=== PATIENT | female | born 1960 | race Caucasian/White ===

== ENCOUNTER 2016-09-05 21:16 | Inpatient (IN) | payer OTHER ==
[~2016-09-05] VITALS: Ht 160 cm; Wt 78.2 kg
[2016-09-05 21:18] VITALS: BP 162/91; PULSE 88; RESP 16; TEMP 98.4; O2SAT 96
[2016-09-05] MEDS ORDERED: MEDR4PAK PO (21:41)
[2016-09-05] MEDS ORDERED: DICL75TA PO (21:41)
[2016-09-05] MEDS ORDERED: LEVO50TA4 PO (21:41)
[2016-09-05] MEDS ORDERED: FOSA70TA PO (21:41)
--- NOTE | 2016-09-05 21:48 | PD ---
HPI Chief Complaint: Hip Injury Time Seen by Provider: 21:48 Travel History International Travel<30 days: No Contact w/Intl Traveler<30days: No Traveled to known affect area: No History of Present Illness HPI 56-year-old female with a history of hypothyroidism status post thyroidectomy and osteoporosis presents to the emergency department for evaluation of right hip and leg pain. The patient states that 4 days ago she began to have some pain in her right hip and leg after work. States that the pain persisted and on Tuesday she went to an urgent care facility and x-rays of her hip which showed arthritis and was prescribed a Medrol Dosepak and diclofenac. States that she has been taking these medications as prescribed for the past 2 days and her symptoms had improved until tonight. States that tonight she went to sit down on her couch and felt a crack in her right hip and has had severe pain from her right hip to her right thigh since this occurred. States that she has been unable to bear weight on the right leg since this occurred. States that he is unable to describe the pain. Pain is severe. Aggravated with movement. No alleviating factors. No other complaints. PFSH Past Medical History Arthritis: Yes (osteo) Diminished Hearing: No Thyroid Disease: Yes (hypothyriod) Tetanus Vaccination: < 5 Years Influenza Vaccination: Yes : 2 Para: 2 Past Surgical History Endocrine Surgery: Yes (thriodectomy) Eye Surgery: Yes Hysterectomy: Yes Social History Alcohol Use: No Tobacco Use: No Substance Use: No Allergies-Medications (Allergen,Severity, Reaction): Coded Allergies: No Known Allergies (Unverified , 09/05/16) Reported Meds & Prescriptions Reported Meds & Active Scripts Active Reported Levothyroxine (Levothyroxine Sodium) 50 Mcg Tab 50 Mcg PO DAILY Fosamax (Alendronate Sodium) 70 Mg Tab 70 Mg PO Q7D Medrol Dosepak (Methylprednisolone) 4 Mg Dspk 4 Mg PO DIRECTED Per Pharmacist direction Diclofenac Sodium DR (Diclofenac Sodium) 75 Mg Tabdr 75 Mg PO BID Review of Systems Except as stated in HPI: all other systems reviewed are Neg Physical Exam Narrative GENERAL: Well-nourished and well-developed pleasant female patient lying on her left side in no acute distress. SKIN: Warm and dry. HEAD: Normocephalic and atraumatic. EYES: No injection, drainage, or hyphema noted. PERRLA. EOMI. ENT: No nasal drainage noted. Oropharynx is clear. NECK: Supple and the trachea is midline. CARDIOVASCULAR: Regular rate and rhythm. RESPIRATORY: Breath sounds are equal bilaterally with no accessory muscle use, wheezing, rhonchi, or crackles. GASTROINTESTINAL: Abdomen is soft, non-tender, and nondistended. MUSCULOSKELETAL: Mild tenderness to palpation of right hip and buttock. Patient resisting any range of motion of the right hip or right knee due to significant pain. No obvious deformities, swelling, cyanosis, or ecchymosis is present throughout the upper and lower extremities. DP pulses are 2+ bilaterally. Capillary refill is within normal limits. BACK: Nontender without any obvious deformities, bony point tenderness, or crepitus noted throughout the thoracic and lumbar vertebrae. NEUROLOGICAL: Awake, alert, and oriented. Normal speech and gait. Cranial nerves are grossly intact. Data Data Last Documented VS Vital Signs Date Time Temp Pulse Resp B/P Pulse Ox O2 Delivery O2 Flow Rate FiO2 09/05/16 21:31 Room Air 09/05/16 21:18 98.4 88 16 162/91 96 Orders Femur (Ap & Lat/2vws) (09/05/16 21:47) Pelvis, Ap Only (Routine) (09/05/16 21:47) Iv Access Insert/Monitor (09/05/16 21:47) Morphine Inj (Morphine Inj) (09/05/16 22:00) Ondansetron Inj (Zofran Inj) (09/05/16 22:00) Sodium Chloride 0.9% Flush (Ns Flush) (09/05/16 22:00) Complete Blood Count With Diff (09/05/16 22:40) Comprehensive Metabolic Panel (09/05/16 22:40) Prothrombin Time / Inr (Pt) (09/05/16 22:40) Act Partial Throm Time (Ptt) (09/05/16 22:40) MDM Medical Decision Making Medical Screen Exam Complete: Yes Emergency Medical Condition: Yes Differential Diagnosis Sciatica versus osteoarthritis versus fracture versus tendinitis Narrative Course 56-year-old female presents to the emergency department for evaluation of right hip and thigh pain after sitting down on the couch. Patient is afebrile, vital signs are stable. She is refusing any sort of range of motion of the right hip or knee due to severe pain. The right lower extremity is neurovascularly intact. We'll do an x-ray of the right femur and pelvis to rule out any fracture. I suspect this is sciatica or muscle strain. Patient is administered morphine 4 mg IV and Zofran 4 mg IV. The patient has a right femoral neck fracture noted on x-ray. She'll be admitted to medicine service with consultation orthopedic surgery. Physician Communication Physician Communication I spoke with Dr. Corona, orthopedic surgeon on-call, who requests patient be admitted to medicine service with consultation to his partner Dr. Carballo. Diagnosis Primary Impression: Fracture of femoral neck, right, closed Qualified Code: S72.001A - Closed fracture of neck of right femur, initial encounter Admitting Information Admitting Physician Requests: Admit Celina Connelly Sep 05, 2016 21:48
[2016-09-05] MEDS ORDERED: ONDANSETRON HCL 4 MG/2 ML VIAL IVP ONE (22:00)
[2016-09-05] MEDS ORDERED: SODIUM CHLORIDE 0.9% FLUSH 5 ML FLUSH IVF PRN (22:00)
[2016-09-05] MEDS ORDERED: MORPHINE SULFATE 4 MG/ML INJ IV PUSH ONE (22:00)
[2016-09-05 22:30] VITALS: BP 145/80; PULSE 70; RESP 18; O2SAT 95
--- NOTE | 2016-09-05 22:31 | RADRPT ---
EXAM DATE/TIME: 09/05/2016 22:07 [facility] COMPARISON: No previous studies available for comparison. INDICATIONS : Pain radiating through right leg and lower back without trauma. MEDICAL HISTORY : Osteoporosis. SURGICAL HISTORY : None. ENCOUNTER: Initial ACUITY: 4 - 6 days PAIN SCORE: 10/10 LOCATION: Right femur. FINDINGS: Bone density is decreased. There is a mildly displaced fracture of the subcapital femoral neck right femur. Left hip intact. Mild joint space narrowing bilaterally. CONCLUSION: Right femoral neck fracture. Pedro Cuellar MD on September 05, 2016 at 22:29 Board Certified Radiologist. This report was verified electronically.
--- NOTE | 2016-09-05 22:45 | RADRPT ---
EXAM DATE/TIME: 09/05/2016 22:08 [facility] COMPARISON: PELVIS AP ONLY, September 05, 2016, 22:07. INDICATIONS : Pain radiating through leg and lower back without trauma. MEDICAL HISTORY : Osteoporosis. SURGICAL HISTORY : None. ENCOUNTER: Initial ACUITY: 4 - 6 days PAIN SCORE: 10/10 LOCATION: Right femur. FINDINGS: There is a mildly displaced fracture through the right subcapital femoral neck. There is osteoarthrit is at the knee of moderate severity. CONCLUSION: Right femoral neck fracture. Pedro Cuellar MD on September 05, 2016 at 22:43 Board Certified Radiologist. This report was verified electronically.
[2016-09-05 22:59] LABS: AUTOMATED NEUTROPHIL # 10.2 TH/MM3 (1.8-7.7); BASOPHIL # 0.1 TH/MM3 (0-0.2); BASOPHIL % 0.5 % (0.0-2.0); EOSINOPHIL % 0.1 % (0.0-4.0); HEMO FLAGS DIFF FINAL; LYMPH % 11.1 % (9.0-44.0); LYMPHOCYTE # 1.4 TH/MM3 (1.0-4.8); MEAN CELL VOLUME 85.9 FL (80.0-100.0); MEAN CORPUSCULAR HEMOGLOBIN 28.5 PG (27.0-34.0); MEAN CORPUSCULAR HGB CONC 33.2 % (32.0-36.0); MONO % 5.5 % (0.0-8.0); NEUT % 82.8 % (16.0-70.0); PLATELET COUNT 308 TH/MM3 (150-450); RED BLOOD COUNT 4.89 MIL/MM3 (4.00-5.30); RED CELL DISTRIBUTION WIDTH 13.9 % (11.6-17.2); WHITE BLOOD COUNT 12.3 TH/MM3 (4.0-11.0)
--- NOTE | 2016-09-05 23:28 | HHI.HP ---
HPI Service [facility] Primary Care Physician Jesus Duran MD Admission Diagnosis Right Femoral Neck Fracture Diagnoses: (1) Hip fracture, right Diagnosis: Principal (2) Osteoporosis Diagnosis: Principal (3) Leukocytosis Diagnosis: Principal (4) Renal insufficiency Diagnosis: Principal (5) HTN (hypertension) Diagnosis: Principal Travel History International Travel<30 Days: No Contact w/Intl Traveler <30 Da: No Traveled to Known Affected Are: No History of Present Illness This is a 56-year-old female with a PMH of Osteoporosis and Hypothyroidism who was brought to the ER by EMS secondary to complaints of right hip pain. Per pt pain started approx 4 days ago, no trauma/injury reported. Seen at [facility]gent [facility] on 09/03/16, s/p Hip X-ray w/ arthritis per her report and prescribed Medrol Dosepak and Diclofenac. Minimal improvement in pain complaints. Tonight states she sat down on her couch and heard a "crack", had immediate severe pain in right hip. On arrival, BP 162/91, HR 88, O2 sat 96% on RA, Afebrile. WBC 12.3. Creatinine 1.24, no bruits labs for comparison. Pelvis/ Femur X-ray with right femoral neck fracture. Dr. Corona consulted by ER physician, recommended consult for Dr. Carmichael for am w/ plan for surgical intervention. Review of Systems Except as stated in HPI: all other systems reviewed are Neg ROS: 14 point review of systems otherwise negative. Past Family Social History Past Medical History PMH: Osteoporosis and Hypothyroidism Past Surgical History PAST SURGICAL HISTORY: Thyroidectomy, Hysterectomy Allergies: Coded Allergies: No Known Allergies (Unverified , 09/05/16) Family History PAST FAMILY HISTORY: Reviewed. No h/o DM or CAD Social History PAST SOCIAL HISTORY: Negative for alcohol, tobacco or drugs. Physical Exam Vital Signs Vital Signs Date Time Temp Pulse Resp B/P Pulse Ox O2 Delivery O2 Flow Rate FiO2 09/05/16 21:31 Room Air 09/05/16 21:18 98.4 88 16 162/91 96 Physical Exam PE: GENERAL: Pleasant middle-aged white female in no acute distress. HEENT: PERRLA, EOMI. No scleral icterus or conjunctival pallor. No lid lag or facial droop. CARDIOVASCULAR: Regular rate and rhythm. No obvious murmurs to auscultation. No chest tenderness to palpation. RESPIRATORY: No obvious rhonchi or wheezing. Clear to auscultation. Breath sounds equal bilaterally. GASTROINTESTINAL: Abdomen soft, non-tender, nondistended. BS normal. MUSCULOSKELETAL: Decreased ROM of RLE due to injury. Pulses intact. NEUROLOGICAL: Awake, alert and oriented x4. No focal neurologic deficits. Moving both upper and lower extremities spontaneously. Laboratory Laboratory Tests Test 09/05/16 22:45 White Blood Count 12.3 Red Blood Count 4.89 Hemoglobin 13.9 Hematocrit 42.0 Mean Corpuscular Volume 85.9 Mean Corpuscular Hemoglobin 28.5 Mean Corpuscular Hemoglobin 33.2 Concent Red Cell Distribution Width 13.9 Platelet Count 308 Mean Platelet Volume 8.9 Neutrophils (%) (Auto) 82.8 Lymphocytes (%) (Auto) 11.1 Monocytes (%) (Auto) 5.5 Eosinophils (%) (Auto) 0.1 Basophils (%) (Auto) 0.5 Neutrophils # (Auto) 10.2 Lymphocytes # (Auto) 1.4 Monocytes # (Auto) 0.7 Eosinophils # (Auto) 0.0 Basophils # (Auto) 0.1 CBC Comment DIFF FINAL Differential Comment Result Diagram: 09/05/16 6462 Assessment and Plan Problem List: (1) Hip fracture, right ICD Code: S72.001A Status: Acute (2) Osteoporosis ICD Code: M81.0 Status: Acute (3) Renal insufficiency ICD Code: N28.9 Status: Acute (4) Leukocytosis ICD Code: D72.829 Status: Acute (5) HTN (hypertension) ICD Code: I10 Status: Acute Assessment and Plan A/P: 1. Right Hip Fx: non-traumatic fracture, Pelvic/Femur X-ray w/ right femoral neck fracture. Dr. Corona consulted by ER physician, recommended consult for Dr. Carmichael in am for surgical intervention. NPO, IVF, analgesics/antiemetics. 2. Osteoporosis: on Flomax. c/o right hip pain, seen at Urgent Care 09/03/16, started on Medrol Dosepak and Diclofenac, states X-ray only positive for arthritis at that time. D/c steroids, hold Diclofenac. 3. Renal Insufficiency: Creatinine 1.24, no previous labs for comparison. IVF , check U/a, repeat labs in am. 4. Leukocytosis: WBC 12.3, mild shift, likely secondary to recent injury/ steroid use. No signs of infection. Repeat labs in am. 5. HTN: BP 160's on arrival, likely compounded by pain and recent steroid use. BP currently 140's, monitor BP, optimize pain control. 6. DVT Prophylaxis: Anticoagulation post-op per Ortho. 7. Social work for d/c planning as needed. 8. Case discussed w/ ER physician at length. Physician Certification 2 Midnight Certification Type: Admission for Inpatient Services Order for Inpatient Services The services are ordered in accordance with Medicare regulations or non- Medicare payer requirements, as applicable. In the case of services not specified as inpatient-only, they are appropriately provided as inpatient services in accordance with the 2-midnight benchmark. Estimated LOS (days): 2 days is the estimated time the patient will need to remain in the hospital, assuming treatment plan goals are met and no additional complications. Post-Hospital Plan: Not yet determined Ml San MD Sep 05, 2016 23:28
[2016-09-05] MEDS ORDERED: ONDANSETRON HCL 4 MG/2 ML VIAL IVP PRN (23:30)
[2016-09-05] MEDS ORDERED: ACETAMINOPHEN 325 MG TAB PO PRN (23:30)
[2016-09-05] MEDS ORDERED: BISACODYL 10 MG SUPP PR PRN (23:30)
[2016-09-05] MEDS ORDERED: ACETAMINOPHEN/HYDROcodone 325 MG/5 MG TAB PO PRN (23:30)
[2016-09-05 23:34] LABS: APTT (PATIENT) 23.4 SEC (24.3-30.1); PROTHROMBIN TIME - PATIENT 10.8 SEC (9.8-11.6)
[2016-09-05 23:48] LABS: ALKALINE PHOSPHATASE 40 U/L (45-117); ALT (GPT) 50 U/L (10-53); ANION GAP 11 MEQ/L (5-15); AST (GOT) 29 U/L (15-37); BICARBONATE 28.9 MEQ/L (21.0-32.0); BLOOD UREA NITROGEN 25 MG/DL (7-18); CHLORIDE 102 MEQ/L (98-107); GLOMERULAR FILTRATION RATE 44 ML/MIN (>89); SODIUM (NA) 142 MEQ/L (136-145); TOTAL BILIRUBIN ADULT 0.3 MG/DL (0.2-1.0)
[2016-09-05] MEDS: SODIUM CHLOR 0.9% 1000 ML INJ 1,000 ML IV SCH (23:55)
[2016-09-05 23:56] VITALS: BP 141/82; PULSE 73; RESP 18; O2SAT 94
[2016-09-06] MEDS: HYDROmorphone HCL PF 1 MG/ML VIAL IV PRN ×6 (01:03→21:33)
[2016-09-06] MEDS: SODIUM CHLORIDE 0.9% FLUSH 5 ML FLUSH FLUSH PRN ×3 (01:03→17:27)
[2016-09-06] MEDS ORDERED: METOPROLOL TARTRATE 25 MG TAB PO PRN (01:15)
[2016-09-06] MEDS ORDERED: INSULIN HUMAN REGULAR 1,000 UNITS/10 ML VIAL SQ PRN (01:15)
[2016-09-06] MEDS: SODIUM CHLORID 0.9% 500 ML IV SCH ×2 (01:15→17:55)
[2016-09-06] MEDS ORDERED: LACTATED RINGER'S 1000 ML IV SCH (01:15)
[2016-09-06 03:00] LABS: AUTOMATED NEUTROPHIL # 7.4 TH/MM3 (1.8-7.7); BASOPHIL # 0.1 TH/MM3 (0-0.2); BASOPHIL % 0.6 % (0.0-2.0); EOSINOPHIL % 0.2 % (0.0-4.0); HEMATOCRIT 37.8 % (35.0-46.0); HEMO FLAGS DIFF FINAL; LYMPH % 18.4 % (9.0-44.0); LYMPHOCYTE # 1.8 TH/MM3 (1.0-4.8); MEAN CELL VOLUME 86.1 FL (80.0-100.0); MEAN CORPUSCULAR HEMOGLOBIN 28.5 PG (27.0-34.0); MEAN CORPUSCULAR HGB CONC 33.1 % (32.0-36.0); MONO % 5.7 % (0.0-8.0); NEUT % 75.1 % (16.0-70.0); PLATELET COUNT 251 TH/MM3 (150-450); RED BLOOD COUNT 4.38 MIL/MM3 (4.00-5.30); RED CELL DISTRIBUTION WIDTH 14.2 % (11.6-17.2); WHITE BLOOD COUNT 9.8 TH/MM3 (4.0-11.0)
[2016-09-06 03:23] LABS: ALT (GPT) 41 U/L (10-53); ANION GAP 7 MEQ/L (5-15); AST (GOT) 19 U/L (15-37); BLOOD UREA NITROGEN 21 MG/DL (7-18); CHLORIDE 106 MEQ/L (98-107); GLOMERULAR FILTRATION RATE 72 ML/MIN (>89); POTASSIUM 4.4 MEQ/L (3.5-5.1); SODIUM (NA) 142 MEQ/L (136-145)
[2016-09-06 03:26] LABS: ALKALINE PHOSPHATASE 31 U/L (45-117); TOTAL BILIRUBIN ADULT 0.3 MG/DL (0.2-1.0)
[2016-09-06 04:00] VITALS: BP 148/90; PULSE 66; RESP 20; TEMP 98.4; O2SAT 96
--- NOTE | 2016-09-06 07:00 | PD.ORT.PN ---
Subjective Subjective Remarks s/p right hip pain hx of bisphonate use x 4 years for osteoporosis Objective Vitals Vital Signs Date Time Temp Pulse Resp B/P Pulse Ox O2 Delivery O2 Flow Rate FiO2 09/06/16 04:00 98.4 66 20 148/90 96 09/05/16 23:56 73 18 141/82 94 Room Air 09/05/16 22:30 70 18 145/80 95 Room Air 09/05/16 21:31 Room Air 09/05/16 21:18 98.4 88 16 162/91 96 Result Diagram: 09/06/16 0249 09/06/16 0249 Other Results Laboratory Tests Test 09/05/16 22:45 Prothrombin Time 10.8 SEC (9.8-11.6) Prothromb Time International 1.0 RATIO Ratio Imaging Last 24 hours Impressions Pelvis X-Ray 09/05/162146 Signed Impressions: Service Date/Time: Monday, September 05, 2016 22:07 - CONCLUSION: Right femoral neck fracture. Pedro Cuellar MD Femur X-Ray 09/05/162146 Signed Impressions: Service Date/Time: Monday, September 05, 2016 22:08 - CONCLUSION: Right femoral neck fracture. Pedro Cuellar MD Objective Remarks RLE: pain in hip with motion. nvi Assessment & Plan Assessment and Plan 1) Right Femoral Neck Fx -resume diet -npo after MN -hold lovenox -sign consents -plan for SANGEETHA tomorrow Noé Kebede Sep 06, 2016 07:00
--- NOTE | 2016-09-06 07:41 | MB ---
cc: CHRIS LEMONS CAMILLE MD DATE OF CONSULTATION: 09/06/[address] Ml San HISTORY OF PRESENT ILLNESS Mrs. Ricks is a 56-year-old female who has a history of osteoporosis. She has been on bisphosphonate medications for many many years. She states that she began having hip pain approximately three days ago. She went to the urgent care center. X-rays were taken which were negative for fracture. She was placed on anti-inflammatories as well as a Medrol Dosepak. She had minimal pain improvement. Last night she was sitting on the couch when she heard a crack and pop in her hip. She had immediate right hip pain. She was unable to stand or ambulate. She denies any actual fall. She presented to the emergency room where x-rays revealed a displaced right femoral neck fracture. She is currently awake and alert on the orthopedic floor. Pain is worse with movement and is improved with rest. PAST MEDICAL HISTORY ILLNESSES 1. Osteoporosis. 2. Hypothyroidism. SURGERIES 1. Hysterectomy. 2. Thyroidectomy. ALLERGIES No known drug allergies. MEDICATIONS Please see EMR for a complete list of medications. She has been on bisphosphonate medications for many years and she is on Synthroid. FAMILY HISTORY Noncontributory. She denies any familial medical problems other than osteoporosis in her mother. SOCIAL HISTORY The patient denies alcohol, tobacco or drug use. She still works four days a week. REVIEW OF SYSTEMS The patient denies headache, visual changes, neck pain, chest pain, shortness of breath, abdominal pain, nausea, vomiting or recent weight loss, numbness or tingling of extremities. She complains of right hip pain. Pain is worse with movement. PHYSICAL EXAMINATION GENERAL: The patient is a well-developed, well-nourished 56-year-old female in no acute distress. She is awake and alert. She is alert and oriented x3. VITAL SIGNS: Temperature 98.4, pulse 66, respirations 20, blood pressure 148/90. O2 sat is 96% on room air. HEAD: The patient is normocephalic. Pupils are equal. NECK: Soft, nontender. Trachea is midline. ABDOMEN: Soft, nontender, nondistended. EXTREMITIES: Examination of bilateral upper extremities reveals no pain with shoulder, elbow or wrist motion bilaterally. She has intact sensation in all fingers. She has good capillary refill in all fingers. Skin is intact. Radial pulses are palpable. Sensation is intact in all fingers. Examination of the left leg reveals no pain with hip, knee or ankle motion. Skin is intact. Dorsalis pedis pulse is palpable. Sensation is intact. Examination of right leg reveals pain with any hip motion. She has no tenderness around her knee, tibia or ankle. Skin is intact. Dorsalis pedis pulse is palpable. Sensation is intact in the right foot. X-RAYS X-rays of right hip were reviewed. X-rays reveal a displaced right femoral neck fracture. IMPRESSION 1. Displaced right femoral neck fracture. 2. Severe osteoporosis. PLAN The treatment options were discussed with the patient. I discussed with her hemiarthroplasty versus total hip arthroplasty. The patient is relatively young and relatively active. She would likely be better long-term with a total hip replacement because of her activity and work. She works on her feet, eight-hour shifts, at least four days a week. She works as a SOURCING SPECIALIST. The risks of surgery include bleeding, infection, injuries to arteries, nerves and blood vessels, leg length discrepancy, hip dislocation, as well as medical complications including blood clot, stroke, heart attack and . All questions were answered. I will plan on surgery tomorrow. A mid-level provider in my office (nurse practitioner or physician therapy assistant) may see this patient on follow-up visits and continue to implement the objectives of this plan including: Starting or adjusting medications, injections , cast application, orthotics, brace application, physical therapy, radiological studies (including x-ray, MRI, CT, ultrasound, bone scan), vascular studies, neurologic studies, specialist consultation, and proceeding with surgical management, as appropriate. MD MIMI Lagos/RUTH /7:21 AM 7:30 AM ZEN
[2016-09-06 07:51] LABS: BLOOD, URINE NEG (NEG); COMMENT (UR) CULT NOT INDICATED; CULTURE IF INDICATED CULT NOT INDICATED; GLUCOSE,URINE NEG (NEG); HYALINE CAST, URINE 1 /lpf (RARE); KETONE, URINE NEG (NEG); MUCUS URINE FEW /lpf (OCC); NITRITE,URINE NEG (NEG); PH, URINE 5.5 (5.0-8.5); SQUAMOUS EPITHELIAL CELL URINE <1 /hpf (0-5); URINE COLOR YELLOW (YELLW/STRAW)
[2016-09-06 08:00] VITALS: BP 146/95; PULSE 62; RESP 17; TEMP 96.8; O2SAT 95
--- NOTE | 2016-09-06 08:56 | HHI.PR ---
Subjective Remarks This is a 56-year-old female with Osteoporosis, Hypothyroidism, brought in to ER with secondary Right Hip pain no traumatic event reported, seen by Urgent Care 09/03/16, Pelvis/Femur X-ray with right femoral neck fracture. Seen in her bedroom in the presence of nurse Miss Castellon, awaiting for surgery probable for tomorrow, placed a [place] Catheter her present, Medication reconciliation performed. Objective Vital Signs Date Time Temp Pulse Resp B/P Pulse Ox O2 Delivery O2 Flow Rate FiO2 09/06/16 08:00 96.8 62 17 146/95 95 09/06/16 04:00 98.4 66 20 148/90 96 09/05/16 23:56 73 18 141/82 94 Room Air 09/05/16 22:30 70 18 145/80 95 Room Air 09/05/16 21:31 Room Air 09/05/16 21:18 98.4 88 16 162/91 96 Result Diagram: 09/06/169 09/06/169 Imaging Last Impressions Pelvis X-Ray 09/05/162146 Signed Impressions: Service Date/Time: Monday, September 05, 2016 22:07 - CONCLUSION: Right femoral neck fracture. Pedro Cuellar MD Femur X-Ray 09/05/162146 Signed Impressions: Service Date/Time: Monday, September 05, 2016 22:08 - CONCLUSION: Right femoral neck fracture. Pedro Cuellar MD Procedures No procedures performed to the patient. Other Results Laboratory Tests Test 09/05/16 09/06/16 09/06/16 22:45 02:49 07:00 Prothrombin Time 10.8 SEC Prothromb Time International 1.0 RATIO Ratio Activated Partial 23.4 SEC Thromboplast Time White Blood Count 9.8 TH/MM3 Red Blood Count 4.38 MIL/MM3 Hemoglobin 12.5 GM/DL Hematocrit 37.8 % Mean Corpuscular Volume 86.1 FL Mean Corpuscular Hemoglobin 28.5 PG Mean Corpuscular Hemoglobin 33.1 % Concent Red Cell Distribution Width 14.2 % Platelet Count 251 TH/MM3 Mean Platelet Volume 8.5 FL Neutrophils (%) (Auto) 75.1 % Lymphocytes (%) (Auto) 18.4 % Monocytes (%) (Auto) 5.7 % Eosinophils (%) (Auto) 0.2 % Basophils (%) (Auto) 0.6 % Neutrophils # (Auto) 7.4 TH/MM3 Lymphocytes # (Auto) 1.8 TH/MM3 Monocytes # (Auto) 0.6 TH/MM3 Eosinophils # (Auto) 0.0 TH/MM3 Basophils # (Auto) 0.1 TH/MM3 CBC Comment DIFF FINAL Differential Comment Sodium Level 142 MEQ/L Potassium Level 4.4 MEQ/L Chloride Level 106 MEQ/L Carbon Dioxide Level 29.0 MEQ/L Anion Gap 7 MEQ/L Blood Urea Nitrogen 21 MG/DL Creatinine 0.82 MG/DL Estimat Glomerular Filtration 72 ML/MIN Rate Random Glucose 113 MG/DL Calcium Level 8.2 MG/DL Total Bilirubin 0.3 MG/DL Aspartate Amino Transf 19 U/L (AST/SGOT) Alanine Aminotransferase 41 U/L (ALT/SGPT) Alkaline Phosphatase 31 U/L Total Protein 5.9 GM/DL Albumin 3.3 GM/DL Blood Type A NEGATIVE Antibody Screen NEGATIVE Blood Bank Comment Urine Color YELLOW Urine Turbidity CLEAR Urine pH 5.5 Urine Specific [place] 1.024 Urine Protein NEG mg/dL Urine Glucose (UA) NEG mg/dL Urine Ketones NEG mg/dL Urine Occult Blood NEG Urine Nitrite NEG Urine Bilirubin NEG Urine Urobilinogen LESS THAN 2.0 MG/DL Urine Leukocyte Esterase NEG Urine RBC 1 /hpf Urine WBC 2 /hpf Urine Squamous Epithelial <1 /hpf Cells Urine Hyaline Casts 1 /lpf Urine Mucus FEW /lpf Microscopic Urinalysis Comment CULT NOT INDICATED Objective Remarks GENERAL: Pleasant middle-aged white female in no acute distress. HEENT: PERRLA, EOMI. No scleral icterus or conjunctival pallor. No lid lag or facial droop. CARDIOVASCULAR: Regular rate and rhythm. No obvious murmurs to auscultation. No chest tenderness to palpation. RESPIRATORY: No obvious rhonchi or wheezing. Clear to auscultation. Breath sounds equal bilaterally. GASTROINTESTINAL: Abdomen soft, non-tender, nondistended. BS normal. MUSCULOSKELETAL: Decreased ROM of RLE due to injury. Pulses intact. NEUROLOGICAL: Awake, alert and oriented x4. No focal neurologic deficits. Moving both upper and lower extremities spontaneously. Medications and IVs Current Medications Medications (Trade) Dose Ordered Sig/Lilliana Route Start Time Stop Time Status Last Admin (NS 1000 ml Inj) 1,000 ml @ 100 mls/hr Q10H IV 3/17 23:25 09/05/16 23:55 (NS Flush) 2 ml UNSCH PRN FLUSH 09/05/16 23:30 09/06/16 01:03 (NS Flush) 2 ml BID FLUSH 09/06/16 09:00 (Zofran Inj) 4 mg Q6H PRN IVP 09/05/16 23:30 (Dulcolax Supp) 10 mg DAILY PRN LA 09/05/16 23:30 (Tylenol) 650 mg Q6H PRN PO 09/05/16 23:30 ([place] 5-325 Mg) 1 tab Q4H PRN PO 09/05/16 23:30 Hydromorphone HCl 1 mg 1 mg Q3H PRN IV 09/05/16 23:30 09/06/16 04:19 Lactated Ringer's 1,000 ml @ 30 mls/hr Q24H IV 09/06/16 01:15 (NS 500 ml Inj) 500 ml @ 30 mls/hr [id number] IV 09/06/16 01:15 09/07/16 01:14 (Pneumovax-23 Inj) 25 mcg ONCE ONCE IM 09/07/16 10:00 09/07/16 10:01 A/P Assessment and Plan (1) Hip fracture, right ICD Code: S72.001A Status: Acute (2) Osteoporosis ICD Code: M81.0 Status: Acute (3) Renal insufficiency ICD Code: N28.9 Status: Acute (4) Leukocytosis ICD Code: D72.829 Status: Acute (5) HTN (hypertension) ICD Code: I10 Status: Acute Assessment and Plan A/P: 1. Right Hip Fx: non-traumatic fracture, Pelvic/Femur X-ray w/ right femoral neck fracture. Orthopedic surgery Real Estate Lawyer for discharge plan, will need PT/OT at discharge 2. Osteoporosis: on Flomax. c/o right hip pain, seen at Urgent Care 09/03/16, started on Medrol Dosepak and Diclofenac. removed steroids by admitting physician. 3. Renal Insufficiency: Creatinine 1.24, no previous labs for comparison. IVF , UA no signs of infection 4. Leukocytosis: WBC 12.3, mild shift, likely secondary to recent injury/ steroid use. No signs of infection. 5. Hypertension controlled. DVT Prophylaxis: Anticoagulation post-op per Ortho. Social work for d/c planning as needed. Discussed with Patient, nurse Miss Castellon and her in the room. Discharge Planning as per Orthopedic police specialist. Baldev Bronson MD Sep 06, 2016 08:56
[2016-09-06] MEDS: SODIUM CHLORIDE 0.9% FLUSH 5 ML FLUSH FLUSH SCH ×2 (09:19→21:33)
[2016-09-06] MEDS: SODIUM CHLOR 0.9% 1000 ML INJ 1,000 ML IV SCH (09:21)
--- NOTE | 2016-09-06 10:04 | EKG ---
Date Performed: 09/06/2016 Time Performed: 02:10:04 PTAGE: 56 years EKG: Sinus rhythm with PAC(s) Borderline ECG NO PREVIOUS TRACING DOCTOR: Rod Rodríguez Interpretating Date/Time 09/06/2016 10:02:58
[2016-09-06] MEDS ORDERED: PRAV20TA2 PO (12:13)
[2016-09-06 12:42] VITALS: BP 134/81; PULSE 66; RESP 17; TEMP 96.2; O2SAT 94
--- NOTE | 2016-09-06 13:04 | RADRPT ---
EXAM DATE/TIME: 09/06/2016 11:44 [facility] COMPARISON: FEMUR RIGHT (AP & LAT/2VWS), September 05, 2016, 22:08. INDICATIONS : Right hip pain, no trauma, osteoporosis RADIATION DOSE: 60.14 CTDIvol (mGy) MEDICAL HISTORY : None SURGICAL HISTORY : Hysterectomy. ENCOUNTER: Initial ACUITY: 1 day PAIN SCALE: 10/10 LOCATION: Right hip TECHNIQUE: Volumetric scanning of the hip was performed. Using automated exposure control and adjustment of the mA and/or kV according to patient size, radiation dose was kept as low as reasonably achievable to o btain optimal diagnostic quality images. FINDINGS: BONES: And angulated fracture is identified through the base of the femoral neck. Femoral head remains well- seated within the acetabulum. Acetabulum and pelvis are intact. JOINTS: Angulated right femoral neck fracture. Advanced facet arthropathy is identified in the lower lumbar s pine at L5-S1. SOFT TISSUES: Muscles, tendons and neurovascular structures are grossly unremarkable. No evidence of mass, organize d fluid collection, or foreign body. CONCLUSION: Angulated basicervical fracture of the right femoral neck. Intact acetabulum and bony pelvis. Lumbosacral facet arthropathy. Edmund Daniel MD on September 06, 2016 at 12:57 Board Certified Radiologist. This report was verified electronically.
[2016-09-06 16:00] VITALS: BP 126/73; PULSE 69; RESP 18; TEMP 96.9; O2SAT 96
[2016-09-06] MEDS ORDERED: VANCOMYCIN INJ 1,250 MG in SODIUM CHLOR 0.9% 250 ML INJ 250 ML IV SCH (19:00)
[2016-09-06] MEDS ORDERED: ceFAZolin 2 GM PREMIX 50 ML IV SCH (19:00)
[2016-09-06 20:00] VITALS: BP 129/81; PULSE 60; RESP 16; TEMP 97.2; O2SAT 97
[2016-09-06] MEDS: PRAVASTATIN SOD 20 MG TAB PO SCH (21:33)
[2016-09-07] VITALS (9 sets, daily range): BP systolic 114–180; BP diastolic 67–94; PULSE 59–73; RESP 16–18; TEMP 95.8–98.4; O2SAT 95–99
[2016-09-07] MEDS: HYDROmorphone HCL PF 1 MG/ML VIAL IV PRN ×3 (00:36→09:03)
--- NOTE | 2016-09-07 06:13 | MB ---
cc: FROYLANJOANNA DATE OF CONSULTATION 09/06/2016 REASON FOR CONSULTATION Fracture right femoral neck. HISTORY This patient started to have some pain in her right groin on while at work and she got along by holding onto em etc. It got worse on Tuesday and she went to the Urgent [facility] Center at [facility] in [place] where they x-rayed her and told her that she probably had some osteoarthritis. They gave her steroids and NSAIDs which made her feel better. She still had difficulty getting around and used a walker that happened to be at home. Last night she had supper, then sat in a recliner and felt a pop in the right hip with severe pain prompting a visit to the emergency room where she was evaluated, x-rayed and admitted to the hospital. The patient was initially consulted on by Dr. Carmichael but later transferred to the [facility] because the patient is well-known to the [facility]. PAST SURGICAL HISTORY Hysterectomy 7 of 8 years ago but did not have any hormone replacement. She did have salpingo-oophorectomy in addition to the hysterectomy. No other surgery. PAST MEDICAL HISTORY She has been diagnosed has having osteoporosis and has been on Fosamax for the past 4-5 years. She has been taking calcium but not vitamin D. No other fractures recently. PHYSICAL EXAMINATION GENERAL: A white female who is of medium height and moderately overweight. EXTREMITIES: The right lower extremity is slightly externally rotated and shortened and pain with any movement of the right hip. She has satisfactory neurovascular status of the right foot. X-RAYS X-rays of the pelvis and right hip revealed fracture of the neck of the femur. There is some residual neck proximal to the lesser trochanter. CT scan reveals the same findings. The radiologist calls it as a basicervical fracture. IMPRESSION Technically this is a femoral neck fracture, even though it is somewhat more distal then the post-traumatic ones. This is a fracture related to osteoporosis and/or treatment with Fosamax. This is, however, not a classic Fosamax-related fracture which is more a proximal femoral shaft fracture and not a femoral neck fracture. I have ordered parathyroid hormone levels and vitamin D levels to see if they give us any clue as to whether there is some osteomalacia associated here. PLAN We will proceed with total hip replacement arthroplasty because that is a procedure that has the best prognosis, even though it has some more risks than internal fixation. I think the benefits outweigh the risks. The procedure itself and the potential risks, hazards and complications including but not limited to dislocation, fractures, DVT, embolism, re-surgery and revision have all been discussed with her. There is the possibility of limb length discrepancy because there is no reference we can use as far as measuring limb lengths at this time. Informed consent obtained. No guarantees made. Surgery is scheduled for tomorrow afternoon. MD ERNESTINA Rincon/AGNES /6:15 PM /6:05 AM
[2016-09-07] MEDS: LEVOTHYROXINE SODIUM 50 MCG TAB PO SCH (06:48)
[2016-09-07] MEDS: SODIUM CHLORIDE 0.9% FLUSH 5 ML FLUSH FLUSH SCH ×2 (09:11→21:27)
[2016-09-07] MEDS ORDERED: PNEUMOCOCCAL POLYVALENT INJ 25 MCG/0.5 ML SYR IM ONE (10:00)
[2016-09-07] MEDS ORDERED: FAMOTIDINE 20 MG/2 ML VIAL ONE (12:56)
[2016-09-07] MEDS ORDERED: ACETAMINOPHEN 1000 MG/100 ML VIAL IV ONE (12:56)
[2016-09-07] MEDS ORDERED: DEXAMETHASONE SOD PHOS 4 MG/ML VIAL ONE (12:56)
[2016-09-07] MEDS ORDERED: fentaNYL CITRATE 250 MCG/5 ML AMP ONE (12:56)
[2016-09-07] MEDS ORDERED: MIDAZOLAM HCL 2 MG/2 ML VIAL ONE (12:56)
[2016-09-07] MEDS ORDERED: GENTAMICIN SULFATE 80 MG/2 ML VIAL ONE (13:02)
--- NOTE | 2016-09-07 13:10 | HHI.PR ---
Subjective Remarks This is a 56-year-old female with Osteoporosis, Hypothyroidism, brought in to ER with secondary Right Hip pain no traumatic event reported, seen by Urgent Care 09/03/16, Pelvis/Femur X-ray with right femoral neck fracture. patient stable awaiting for procedure later today. has one value of high blood pressure do not need antihypertensives at this time. she complaint of pain and Anxiety previous to this high blood pressure. Objective Vital Signs Date Time Temp Pulse Resp B/P Pulse Ox O2 Delivery O2 Flow Rate FiO2 09/07/16 12:00 98.3 73 18 157/74 97 09/07/16 08:00 96.6 72 18 180/94 97 09/07/16 04:00 98.4 64 17 146/76 98 09/07/16 00:00 97.9 59 16 133/77 97 09/06/16 20:00 97.2 60 16 129/81 97 09/06/16 16:00 96.9 69 18 126/73 96 I/O 09/06/16 09/06/16 09/06/16 09/07/16 09/07/16 09/07/16 07:00 15:00 23:00 07:00 15:00 23:00 Intake Total 930 ml 0 ml Output Total 550 ml 325 ml Balance 380 ml -325 ml Intake Oral 930 ml 0 ml Output Urine Total 550 ml 325 ml # Voids 1 # Bowel Movements 0 Result Diagram: 09/06/16 0249 09/06/16 0249 Imaging Last Impressions Lower Extremity CT 09/06/16 0000 Signed Impressions: Service Date/Time: Tuesday, September 06, 2016 11:44 - CONCLUSION: Angulated basicervical fracture of the right femoral neck. Intact acetabulum and bony pelvis. Lumbosacral facet arthropathy. Edmund Daniel MD Pelvis X-Ray 09/05/[id number] Signed Impressions: Service Date/Time: Monday, September 05, 2016 22:07 - CONCLUSION: Right femoral neck fracture. Pedro Cuellar MD Femur X-Ray 09/05/162146 Signed Impressions: Service Date/Time: Monday, September 05, 2016 22:08 - CONCLUSION: Right femoral neck fracture. Pedro Cuellar MD Procedures No procedures performed to the patient. Other Results Laboratory Tests Test 3/509/06/16 09/06/16 09/07/16 22:45 02:49 07:00 08:26 Prothrombin Time 10.8 SEC Prothromb Time International 1.0 RATIO Ratio Activated Partial 23.4 SEC Thromboplast Time White Blood Count 9.8 TH/MM3 Red Blood Count 4.38 MIL/MM3 Hemoglobin 12.5 GM/DL Hematocrit 37.8 % Mean Corpuscular Volume 86.1 FL Mean Corpuscular Hemoglobin 28.5 PG Mean Corpuscular Hemoglobin 33.1 % Concent Red Cell Distribution Width 14.2 % Platelet Count 251 TH/MM3 Mean Platelet Volume 8.5 FL Neutrophils (%) (Auto) 75.1 % Lymphocytes (%) (Auto) 18.4 % Monocytes (%) (Auto) 5.7 % Eosinophils (%) (Auto) 0.2 % Basophils (%) (Auto) 0.6 % Neutrophils # (Auto) 7.4 TH/MM3 Lymphocytes # (Auto) 1.8 TH/MM3 Monocytes # (Auto) 0.6 TH/MM3 Eosinophils # (Auto) 0.0 TH/MM3 Basophils # (Auto) 0.1 TH/MM3 CBC Comment DIFF FINAL Differential Comment Sodium Level 142 MEQ/L Potassium Level 4.4 MEQ/L Chloride Level 106 MEQ/L Carbon Dioxide Level 29.0 MEQ/L Anion Gap 7 MEQ/L Blood Urea Nitrogen 21 MG/DL Creatinine 0.82 MG/DL Estimat Glomerular Filtration 72 ML/MIN Rate Random Glucose 113 MG/DL Calcium Level 8.2 MG/DL Total Bilirubin 0.3 MG/DL Aspartate Amino Transf 19 U/L (AST/SGOT) Alanine Aminotransferase 41 U/L (ALT/SGPT) Alkaline Phosphatase 31 U/L Total Protein 5.9 GM/DL Albumin 3.3 GM/DL Blood Type A NEGATIVE Antibody Screen NEGATIVE Blood Bank Comment Urine Color YELLOW Urine Turbidity CLEAR Urine pH 5.5 Urine Specific [place] 1.024 Urine Protein NEG mg/dL Urine Glucose (UA) NEG mg/dL Urine Ketones NEG mg/dL Urine Occult Blood NEG Urine Nitrite NEG Urine Bilirubin NEG Urine Urobilinogen LESS THAN 2.0 MG/DL Urine Leukocyte Esterase NEG Urine RBC 1 /hpf Urine WBC 2 /hpf Urine Squamous Epithelial <1 /hpf Cells Urine Hyaline Casts 1 /lpf Urine Mucus FEW /lpf Microscopic Urinalysis Comment CULT NOT INDICATED 25-Hydroxy Vitamin D Total 19.9 ng/ML Parathyroid Hormone (Intact) 134.1 PG/ML Objective Remarks GENERAL: Pleasant middle-aged white female in no acute distress. HEENT: PERRLA, EOMI. No scleral icterus or conjunctival pallor. No lid lag or facial droop. CARDIOVASCULAR: Regular rate and rhythm. No obvious murmurs to auscultation. No chest tenderness to palpation. RESPIRATORY: No obvious rhonchi or wheezing. Clear to auscultation. Breath sounds equal bilaterally. GASTROINTESTINAL: Abdomen soft, non-tender, nondistended. BS normal. MUSCULOSKELETAL: Decreased ROM of RLE due to injury. Pulses intact. NEUROLOGICAL: Awake, alert and oriented x4. No focal neurologic deficits. Moving both upper and lower extremities spontaneously. Medications and IVs Current Medications Medications (Trade) Dose Ordered Sig/Lilliana Route Start Time Stop Time Status Last Admin (NS 1000 ml Inj) 1,000 ml @ 100 mls/hr Q10H IV 09/05/16 23:25 09/06/16 09:21 (NS Flush) 2 ml UNSCH PRN FLUSH 09/05/16 23:30 09/06/16 17:27 (NS Flush) 2 ml BID FLUSH 09/06/16 09:00 09/07/16 09:11 (Zofran Inj) 4 mg Q6H PRN IVP 09/05/16 23:30 (Dulcolax Supp) 10 mg DAILY PRN OK 09/05/16 23:30 (Tylenol) 650 mg Q6H PRN PO 09/05/16 23:30 (Bradford 5-325 Mg) 1 tab Q4H PRN PO 09/05/16 23:30 09/06/16 16:15 Hydromorphone HCl 1 mg 1 mg Q3H PRN IV 09/05/16 23:30 09/07/16 09:03 (Lr 1000 ml Inj) 1,000 ml @ 30 mls/hr Q24H IV 09/06/16 01:15 (Synthroid) 50 mcg DAILY@0600 PO 09/07/16 06:00 09/07/16 06:48 Pravastatin Sodium 20 mg 20 mg HS PO 09/06/16 21:00 09/06/16 21:33 (Cyklokapron Inj/ NS Inj) 107.8 ml @ 200 mls/hr ONCE IV 09/06/16 19:15 09/09/16 19:14 (Hibiclens 4% Top Soln) 1 applic ONCE TOP 09/07/16 01:30 09/10/16 01:29 A/P Assessment and Plan (1) Hip fracture, right ICD Code: S72.001A Status: Acute (2) Osteoporosis ICD Code: M81.0 Status: Acute (3) Renal insufficiency ICD Code: N28.9 Status: Acute (4) Leukocytosis ICD Code: D72.829 Status: Acute (5) HTN (hypertension) ICD Code: I10 Status: Acute Assessment and Plan A/P: 1. Right Hip Fx: non-traumatic fracture, Pelvic/Femur X-ray w/ right femoral neck fracture. Orthopedic surgery Blasting Entryman for discharge plan, will need PT/OT at discharge, seen by Doctor Vicente Amato, and scheduled the patient for Total hip replacement arthroplasty. 2. Osteoporosis: on Flomax. c/o right hip pain, seen at Urgent Care 09/03/16, started on Medrol Dosepak and Diclofenac. removed steroids by admitting physician. 3. Acute Renal Injury improved. 4. Leukocytosis: Improved secondary to trauma and steroids. 5. Hypertension Mild uncontrol no anti hypertensives recommended 6. Hypothyroidism to continue Levothyroxine. DVT Prophylaxis: Anticoagulation post-op per Ortho. Social work for d/c planning as needed. Discussed with Patient, nurse Miss Castellon no new issues, she will have procedure later today. Discharge Planning as per Orthopedic plastic surgery manager. Baldev Craig MD Sep 07, 2016 13:10
[2016-09-07] MEDS ORDERED: BUPIVACAINE/EPINEPHRINE 0.25% PF 30 ML VIAL ONE (13:17)
[2016-09-07] MEDS ORDERED: [UNRECOGNIZED DRUG - OTHER] PERIART SCH ×5 (13:30)
[2016-09-07] MEDS: TRANEXAMIC ACID INJ 780 MG in SODIUM CHLORIDE 0.9% INJ 100 ML IV SCH (13:58)
[2016-09-07] MEDS ORDERED: [UNRECOGNIZED DRUG - REMARK] PERIART SCH ×5 (14:00)
[2016-09-07] MEDS ORDERED: NEOSTIGMINE 3 MG/3 ML SYR IV ONE (14:04)
[2016-09-07] MEDS ORDERED: PROPOFOL 200 MG/20 ML AMP IV ONE (14:04)
[2016-09-07] MEDS ORDERED: LACTATED RINGER'S 1000 ML INJ 1,000 ML IV ONE (14:04)
[2016-09-07] MEDS ORDERED: ePHEDrine/NS 25 MG/5 ML SYR IV ONE (14:04)
[2016-09-07] MEDS ORDERED: ONDANSETRON HCL 4 MG/2 ML VIAL IV PUSH ONE (14:04)
[2016-09-07] MEDS ORDERED: PHENYLEPH/NS 1000 MCG/10 ML SYR IV ONE (14:04)
[2016-09-07] MEDS ORDERED: Post-op Orders (for Pharmacy) MISC XX ONE (16:15)
[2016-09-07] MEDS ORDERED: MORPHINE SULFATE 30 MG/30 ML PCA IV SCH (16:15)
[2016-09-07] MEDS ORDERED: NALOXONE HCL 0.4 MG/ML AMP IV PRN (16:15)
[2016-09-07] MEDS ORDERED: ONDANSETRON HCL 4 MG/2 ML VIAL IVP PRN (16:15)
[2016-09-07] MEDS ORDERED: diphenhydrAMINE HCL 50 MG/ML VIAL IV PRN (16:15)
[2016-09-07] MEDS ORDERED: SODIUM CHLORIDE 0.9% FLUSH 5 ML FLUSH IVF PRN (16:15)
--- NOTE | 2016-09-07 16:32 | RADRPT ---
EXAM DATE/TIME: 09/07/2016 15:48 [facility] COMPARISON: No previous studies available for comparison. INDICATIONS : Right total hip surgery. MEDICAL HISTORY : Unobtainable. SURGICAL HISTORY : Unobtainable. ENCOUNTER: Initial ACUITY: 1 day PAIN SCORE: Non-responsive. LOCATION: Right hip. CONCLUSION: Fluoroscopic image obtained. Right hip arthroplasty. Abdon Gutierrez MD on September 07, 2016 at 16:30 Board Certified Radiologist. This report was verified electronically.
[2016-09-07] MEDS ORDERED: DO NOT ADM ANY ANTICOAGULANT DRUGS XX PRN (16:40)
[2016-09-07] MEDS ORDERED: MORPHINE SULFATE 4 MG/ML INJ ONE (16:47)
[2016-09-07] MEDS ORDERED: TRANEXAMIC ACID INJ 786 MG in SODIUM CHLORIDE 0.9% INJ 100 ML IV SCH (17:00)
[2016-09-07] MEDS: SODIUM CHLOR 0.9% 1000 ML INJ 1,000 ML IV SCH (17:04)
[2016-09-07] MEDS: KETOROLAC TROMETHAMINE 30 MG/ML (IVP) VIAL IVP SCH ×2 (17:13→23:00)
--- NOTE | 2016-09-07 17:41 | RADRPT ---
EXAM DATE/TIME: 09/07/2016 16:48 [facility] COMPARISON: No previous studies available for comparison. INDICATIONS : Post op right hip surgery. MEDICAL HISTORY : Osteoporosis. Right femoral neck fracture. SURGICAL HISTORY : None. ENCOUNTER: Initial ACUITY: 2 days PAIN SCORE: 0/10 LOCATION: Right hip FINDINGS: A two view examination of the right hip was performed. Right hip arthroplasty. No hardware loosening. Postsurgical changes. CONCLUSION: Right hip prosthesis. Abdon Gutierrez MD on September 07, 2016 at 17:39 Board Certified Radiologist. This report was verified electronically.
[2016-09-07] MEDS ORDERED: SODIUM CHLORIDE 0.9% FLUSH 5 ML FLUSH IVF SCH (21:00)
[2016-09-07] MEDS: CALCIUM CARBONATE 1.25 GM (CA 500 MG) TAB PO SCH (21:00)
[2016-09-07] MEDS ORDERED: TEMAZEPAM 15 MG CAP PO PRN (21:00)
[2016-09-07] MEDS: PRAVASTATIN SOD 20 MG TAB PO SCH (21:26)
[2016-09-07] MEDS: ceFAZolin 2 GM PREMIX 50 ML IV SCH (21:27)
[2016-09-07] MEDS: PCA - TOTAL MG MORPHINE DELIVERED PER SHIFT SCH (22:00)
[2016-09-08] MEDS: CHLORHEXIDINE GLUCONATE 4% SOLN 120 ML BTL TOP SCH ×2 (01:30→22:19)
[2016-09-08] MEDS: ceFAZolin 2 GM PREMIX 50 ML IV SCH ×2 (01:42→07:53)
[2016-09-08] MEDS: SODIUM CHLOR 0.9% 1000 ML INJ 1,000 ML IV SCH (01:43)
[2016-09-08] MEDS ORDERED: ACETAMINOPHEN 1000 MG/100 ML VIAL IV SCH (02:00)
[2016-09-08] MEDS ORDERED: VANCOMYCIN INJ 1,500 MG in SODIUM CHLORID 0.9% 500 ML INJ 500 ML IV SCH (02:00)
[2016-09-08 04:00] VITALS: BP 122/67; PULSE 61; RESP 16; TEMP 97.6; O2SAT 99
[2016-09-08] MEDS: KETOROLAC TROMETHAMINE 30 MG/ML (IVP) VIAL IVP SCH (05:34)
[2016-09-08 05:59] LABS: HEMATOCRIT 31.1 % (35.0-46.0); REVIEW FLAG FINAL
[2016-09-08] MEDS: PCA - TOTAL MG MORPHINE DELIVERED PER SHIFT SCH (06:00)
[2016-09-08 06:28] LABS: BICARBONATE 27.6 MEQ/L (21.0-32.0)
[2016-09-08] MEDS: LEVOTHYROXINE SODIUM 50 MCG TAB PO SCH (06:45)
[2016-09-08 07:03] LABS: CALCIUM-PROTEIN CORRECTED 8.7 MG/DL (8.5-10.1)
[2016-09-08] MEDS: CALCIUM CARBONATE 1.25 GM (CA 500 MG) TAB PO SCH ×2 (07:52→20:51)
[2016-09-08] MEDS: CHOLECALCIFEROL (VIT D3) LIQ 400 UNITS/ML 50 ML BOTTLE PO SCH (07:52)
[2016-09-08 08:12] VITALS: BP 125/72; PULSE 78; RESP 16; TEMP 96.5; O2SAT 96
[2016-09-08 08:56] VITALS: O2SAT 98
[2016-09-08] MEDS: SODIUM CHLORIDE 0.9% FLUSH 5 ML FLUSH FLUSH SCH ×2 (09:00→20:57)
--- NOTE | 2016-09-08 10:11 | MP ---
cc: JOANNA ZHANG DATE OF SURGERY 09/07/2016 PREOPERATIVE NOTE Markedly displaced fracture right femoral neck ([facility]) POSTOPERATIVE DIAGNOSIS Markedly displaced fracture right femoral neck ([place]) OPERATIVE PROCEDURE Total hip replacement arthroplasty right hip using the following Biomet components cup 46 mm with dome screw and a 32 mm high wall liner, stem 8 mm taper lock stem, head 32 ceramic -[address] Zhang ANESTHESIA General TECHNIQUE After induction of general anesthesia, the patient placed in the right lateral position supported with Biomet hip positioners. Strict lateral position was ascertained. The right hip and lower extremity thoroughly prepped with alcohol and ChloraPrep and draped in routine fashion including double Ioban drapes. A standard lateral incision was made centered on the greater trochanter and deepened through thick subcutaneous tissue (about 3 to 4 inches). The fascia was exposed and fascia incised in line of the skin incision. The fibers of the gluteus esteban . The deep Charnley retractor was introduced. The hip was internally rotated and the short external rotators identified, tagged and cut close to bone and the capsule incised in an inverted L-shaped fashion with a vertical limb of the L along the intertrochanteric line. The femoral head was varus and with the attached bone of the femoral neck impacted onto the distal fragment. An oscillating saw was used to cut just below the femoral head and the bone excised and now the femoral head extractor with the use of a corkscrew. The femoral head measured and measured only 41 mm. X-rays were reviewed. The acetabulum was checked and it looked like we should be able to put a 46 mm cup, but if not, we will have to put a bipolar. The acetabulum was exposed and sequential reaming was carried out to expose bleeding subchondral bone to 45 mm reamer. A 46 mm trial fits well and therefore a 46 mm Katie cup with the holes superior was impacted in place getting good fixation. A single 25 mm dome screw was placed. High wall liner impacted in place with a buildup superior-posterior. The femoral neck was examined. There was some loss of bone from the calcar, but the anterior and posterior cortices were intact to approximately 10-15 mm proximal to the lesser trochanter. Cookie cutter was used followed by canal finder and broaching to 8 mm broach which is about 8 mm short of the top of the lesser trochanter. A calcar planer was used. Trial reduction carried out with a -6 head and there was excellent stability and good leg lengths and good tightness around the joint. The greater trochanter is somewhat vague and impinges on external rotation, but I do not want to make the leg any longer and there is no indication that we need a high offset stem. Trial implant was removed and the impaction bone grafting of the canal was carried out with the cancellus bone obtained from the femoral neck and the acetabulum and an 8 mm taper lock stem impacted in place in about 15 to 20 degrees anteversion with the prosthesis impacted in line with anterior and posterior cortex in approximately 9 mm or so short of the bone proximal lesser trochanter. A -632 mm ceramic head was a placed on the Velarde cleaned and dried Velarde taper and final reduction was carried out getting good position, alignment and stability. There was good leg lengths. Fluoroscopic imaging was done in an AP view which shows good position of the stem as well as the cup. The wound was irrigated with saline solution followed by suturing of the short rotators and the capsule to the posterior margin of the greater trochanter with #2 FiberWire. The fascia closed with #2 quill, subcutaneous tissue with Vicryl, skin closed with 3-0 subcuticular Quill and Steri-Strips. Dressings were applied with Xeroform, 4x4s, ABD, Medipore tape. Abduction pillow applied. The patient transferred to the recovery room in satisfactory condition. The patient tolerated the procedure well. Transfusions and complications, none. POSTOPERATIVE CONDITION Satisfactory PROGNOSIS I believe we have a good stable total hip. She, however, does have significant osteoporosis and possibly even osteomalacia and therefore appropriate treatment has to be undertaken in the postoperative period in terms of calcium and possibly vitamin D supplements and to look at other options also. ESTIMATED BLOOD LOSS 500 mL. MD ERNESTINA Rincon/LORENA /4:24 PM /9:51 AM
[2016-09-08 11:51] VITALS: BP 104/54; PULSE 85; RESP 16; TEMP 98; O2SAT 97
[2016-09-08] MEDS: ACETAMINOPHEN/HYDROcodone 325 MG/5 MG TAB PO PRN ×2 (13:05→17:59)
--- NOTE | 2016-09-08 13:08 | HHI.PR ---
Subjective Remarks This is a 56-year-old female with Osteoporosis, Hypothyroidism, brought in to ER with secondary Right Hip pain no traumatic event reported, seen by Urgent Care 09/03/16, Pelvis/Femur X-ray with right femoral neck fracture. Patient stable seen in the room and discussed with patient in the room, status post Surgery 09/07/16 with Post operative diagnosis of Markedly displaced fracture right femoral neck, status post Total Hip replacement arthroplasty, she will work with Physical Therapy later today. Objective Vital Signs Date Time Temp Pulse Resp B/P Pulse Ox O2 Delivery O2 Flow Rate FiO2 09/08/16 08:56 98 21 09/08/16 06:00 18 09/08/16 04:00 97.6 61 16 122/67 99 09/07/16 23:00 97.0 67 16 114/67 96 09/07/16 22:00 18 09/07/16 20:31 98 21 09/07/16 19:16 96.3 61 16 117/76 96 09/07/16 18:00 95 Nasal Cannula 2.00 09/07/16 17:56 95.8 71 18 124/91 99 09/07/16 17:28 98.1 59 15 120/73 99 Nasal Cannula 2 09/07/16 17:15 59 13 134/78 99 Nasal Cannula 2 09/07/16 17:00 60 15 125/71 99 Nasal Cannula 2 09/07/16 16:49 15 09/07/16 16:45 62 17 121/44 99 Nasal Cannula 2 09/07/16 16:40 98.3 73 16 120/62 96 Nasal Cannula 2 I/O 09/07/16 09/07/16 09/07/16 09/08/16 09/08/16 09/08/16 07:00 15:00 23:00 07:00 15:00 23:00 Intake Total 0 ml 480 ml 1980 ml 480 ml Output Total 325 ml 1700 ml 900 ml Balance -325 ml 480 ml 280 ml -420 ml Intake Oral 0 ml 480 ml 480 ml 480 ml Other 1500 ml Output Urine Total 325 ml 800 ml 900 ml Estimated Blood Loss 400 ml Other 500 ml # Voids 2 # Bowel Movements 0 0 0 Result Diagram: 09/08/16 0533 09/08/16 0533 Imaging Last Impressions Hip X-Ray 09/07/16 0000 Signed Impressions: Service Date/Time: Wednesday, September 07, 2016 16:48 - CONCLUSION: Right hip prosthesis. Abdon Gutierrez MD Lower Extremity CT 09/06/16 0000 Signed Impressions: Service Date/Time: Tuesday, September 06, 2016 11:44 - CONCLUSION: Angulated basicervical fracture of the right femoral neck. Intact acetabulum and bony pelvis. Lumbosacral facet arthropathy. Edmund Daniel MD Pelvis X-Ray 09/05/162146 Signed Impressions: Service Date/Time: Monday, September 05, 2016 22:07 - CONCLUSION: Right femoral neck fracture. Pedro Cuellar MD Femur X-Ray [id number] Signed Impressions: Service Date/Time: Monday, September 05, 2016 22:08 - CONCLUSION: Right femoral neck fracture. Pedro Cuellar MD Procedures No procedures performed to the patient. Other Results Laboratory Tests Test 09/05/16 09/06/16 09/06/16 09/07/16 22:45 02:49 07:00 08:26 Prothrombin Time 10.8 SEC Prothromb Time International 1.0 RATIO Ratio Activated Partial 23.4 SEC Thromboplast Time White Blood Count 9.8 TH/MM3 Red Blood Count 4.38 MIL/MM3 Mean Corpuscular Volume 86.1 FL Mean Corpuscular Hemoglobin 28.5 PG Mean Corpuscular Hemoglobin 33.1 % Concent Red Cell Distribution Width 14.2 % Platelet Count 251 TH/MM3 Mean Platelet Volume 8.5 FL Neutrophils (%) (Auto) 75.1 % Lymphocytes (%) (Auto) 18.4 % Monocytes (%) (Auto) 5.7 % Eosinophils (%) (Auto) 0.2 % Basophils (%) (Auto) 0.6 % Neutrophils # (Auto) 7.4 TH/MM3 Lymphocytes # (Auto) 1.8 TH/MM3 Monocytes # (Auto) 0.6 TH/MM3 Eosinophils # (Auto) 0.0 TH/MM3 Basophils # (Auto) 0.1 TH/MM3 CBC Comment DIFF FINAL Differential Comment Total Bilirubin 0.3 MG/DL Aspartate Amino Transf 19 U/L (AST/SGOT) Alanine Aminotransferase 41 U/L (ALT/SGPT) Alkaline Phosphatase 31 U/L Albumin 3.3 GM/DL Blood Type A NEGATIVE Antibody Screen NEGATIVE Blood Bank Comment Urine Color YELLOW Urine Turbidity CLEAR Urine pH 5.5 Urine Specific [place] 1.024 Urine Protein NEG mg/dL Urine Glucose (UA) NEG mg/dL Urine Ketones NEG mg/dL Urine Occult Blood NEG Urine Nitrite NEG Urine Bilirubin NEG Urine Urobilinogen LESS THAN 2.0 MG/DL Urine Leukocyte Esterase NEG Urine RBC 1 /hpf Urine WBC 2 /hpf Urine Squamous Epithelial <1 /hpf Cells Urine Hyaline Casts 1 /lpf Urine Mucus FEW /lpf Microscopic Urinalysis Comment CULT NOT INDICATED 25-Hydroxy Vitamin D Total 19.9 ng/ML Parathyroid Hormone (Intact) 134.1 PG/ML Test 09/08/16 05:33 Hemoglobin 10.6 GM/DL Hematocrit 31.1 % Sodium Level 141 MEQ/L Potassium Level 4.0 MEQ/L Chloride Level 107 MEQ/L Carbon Dioxide Level 27.6 MEQ/L Anion Gap 6 MEQ/L Blood Urea Nitrogen 9 MG/DL Creatinine 0.65 MG/DL Estimat Glomerular Filtration 94 ML/MIN Rate Random Glucose 121 MG/DL Calcium Level 7.4 MG/DL Protein Corrected Calcium 8.7 MG/DL Total Protein 4.8 GM/DL Objective Remarks GENERAL: No acute distress. HEENT: PERRLA, EOMI. No scleral icterus or conjunctival pallor. No lid lag or facial droop. CARDIOVASCULAR: Regular rate and rhythm. No obvious murmurs to auscultation. No chest tenderness to palpation. RESPIRATORY: No obvious rhonchi or wheezing. Clear to auscultation. Breath sounds equal bilaterally. GASTROINTESTINAL: Abdomen soft, non-tender, nondistended. BS normal. MUSCULOSKELETAL: Right hip dressed. NEUROLOGICAL: Awake, alert and oriented x4. No focal neurologic deficits. Medications and IVs Current Medications Medications (Trade) Dose Ordered Sig/Lilliana Route Start Time Stop Time Status Last Admin (NS Flush) 2 ml UNSCH PRN FLUSH 09/05/16 23:30 09/06/16 17:27 (NS Flush) 2 ml BID FLUSH 09/06/16 09:00 09/07/16 21:27 (Zofran Inj) 4 mg Q6H PRN IVP 09/05/16 23:30 (Dulcolax Supp) 10 mg DAILY PRN MA 09/05/16 23:30 (Tylenol) 650 mg Q6H PRN PO 09/05/16 23:30 (Dilaudid Pf Inj) 1 mg Q3H PRN IV 09/05/16 23:30 09/07/16 09:03 (Synthroid) 50 mcg DAILY@0600 PO 09/07/16 06:00 09/08/16 06:45 Pravastatin Sodium 20 mg 20 mg HS PO 09/06/16 21:00 09/07/16 21:26 (Cyklokapron Inj/ NS Inj) 107.8 ml @ 200 mls/hr ONCE IV 09/06/16 19:15 09/09/16 19:14 09/07/16 13:58 Chlorhexidine Gluconate 1 applic 1 applic ONCE TOP 09/07/16 01:30 09/10/16 01:29 (NS 1000 ml Inj) 1,000 ml @ 125 mls/hr Q8H IV 09/07/16 16:13 09/08/16 01:43 (Lovenox Inj) 40 mg Q24H SQ 09/08/16 15:30 ([place] 5-325 Mg) 1 tab Q4H PRN PO 09/07/16 16:15 (Exchange 5-325 Mg) 2 tab Q4H PRN PO 09/07/16 16:15 (Toradol Inj) 15 mg Q6H IVP 09/07/16 17:00 09/09/16 11:01 09/08/16 05:34 (Colace) 100 mg BID PO 09/08/16 21:00 (Restoril) 15 mg HS PRN PO 09/07/16 21:00 (Narcan Inj) 0.4 mg UNSCH PRN IV 09/07/16 16:15 (Benadryl Inj) 25 mg Q6H PRN IV 09/07/16 16:15 (Morphine 1 Mg/ ml USER SUPPORT ANALYST) 30 mg UNSCH IV 09/07/16 16:15 09/07/16 16:49 USER SUPPORT ANALYST Dosage Infused (Pha) 1 Q8HR .XX 09/07/16 22:00 09/08/16 06:00 (Oscal) 500 mg Q12HR PO 09/07/16 21:00 09/08/16 07:52 (Vitamin D Liq) 2,000 units DAILY PO 09/08/16 09:00 09/08/16 07:52 Miscellaneous Information ALL NURSING DEPARTME... UNSCH PRN XX 09/07/16 16:40 09/08/16 16:39 (Tylenol) 650 mg BID PO 09/08/16 21:00 A/P Assessment and Plan (1) Hip fracture, right ICD Code: S72.001A Status: Acute (2) Osteoporosis ICD Code: M81.0 Status: Acute (3) Renal insufficiency ICD Code: N28.9 Status: Acute (4) Leukocytosis ICD Code: D72.829 Status: Acute (5) HTN (hypertension) ICD Code: I10 Status: Acute Assessment and Plan A/P: 1. Right Hip Fx: Markedly displaced fracture right femoral neck, status post Total Hip replacement arthroplasty 09/07/16 stable 2. Osteoporosis: on Flomax. c/o right hip pain, seen at Urgent Care 09/03/16, started on Medrol Dosepak and Diclofenac. removed steroids by admitting physician. 3. Acute Renal Injury improved. 4. Leukocytosis: Improved secondary to trauma and steroids. 5. Hypertension Controlled. 6. Hypothyroidism to continue Levothyroxine. DVT Prophylaxis: Lovenox. Social work for d/c planning as needed. Discussed with Patient Discharge Planning as per Orthopedic property management specialist. Baldev Craig MD Sep 08, 2016 13:08
[2016-09-08] MEDS: ENOXAPARIN SODIUM 40 MG/0.4 ML SYRINGE SQ SCH (15:30)
[2016-09-08] MEDS ORDERED: PILL SPLITTER OTHER PRN (15:45)
[2016-09-08 16:00] VITALS: BP 116/71; PULSE 71; RESP 16; TEMP 98.2; O2SAT 97
[2016-09-08] MEDS ORDERED: KETOROLAC TROMETHAMINE 10 MG TAB PO SCH (16:00)
[2016-09-08] MEDS: KETOROLAC TROMETHAMINE 10 MG TAB PO SCH ×2 (16:00→21:31)
[2016-09-08] MEDS: TRANEXAMIC ACID INJ 780 MG in SODIUM CHLORIDE 0.9% INJ 100 ML IV SCH (19:15)
[2016-09-08 20:47] VITALS: O2SAT 96
[2016-09-08] MEDS: DOCUSATE SODIUM 100 MG CAP PO SCH (20:50)
[2016-09-08] MEDS: PRAVASTATIN SOD 20 MG TAB PO SCH (20:51)
[2016-09-08] MEDS: ACETAMINOPHEN 325 MG TAB PO SCH (20:57)
[2016-09-09 00:20] VITALS: BP 121/74; PULSE 69; RESP 15; TEMP 98.6; O2SAT 98
[2016-09-09] MEDS: ACETAMINOPHEN/HYDROcodone 325 MG/5 MG TAB PO PRN ×3 (05:26→21:28)
[2016-09-09] MEDS: LEVOTHYROXINE SODIUM 50 MCG TAB PO SCH (05:26)
[2016-09-09] MEDS: KETOROLAC TROMETHAMINE 10 MG TAB PO SCH ×4 (05:26→21:27)
--- NOTE | 2016-09-09 07:45 | PD.ORT.PN ---
Subjective Post Op Day #: 2 Pain Scale: notb much Subjective Remarks upto bathroom several times, incliduing BM Distance Walked to BR several times Objective Vitals Vital Signs Date Time Temp Pulse Resp B/P Pulse Ox O2 Delivery O2 Flow Rate FiO2 09/09/16 00:20 98.6 69 15 121/74 98 09/08/16 20:47 96 21 09/08/16 16:00 98.2 71 16 116/71 97 09/08/16 11:51 98.0 85 16 104/54 97 09/08/16 08:56 98 21 09/08/16 08:12 96.5 78 16 125/72 96 I/O 09/08/16 09/08/16 09/08/16 09/09/16 09/09/16 09/09/16 07:00 15:00 23:00 07:00 15:00 23:00 Intake Total 480 ml 720 ml 720 ml 480 ml Output Total 900 ml 500 ml Balance -420 ml 720 ml 220 ml 480 ml Intake Oral 480 ml 720 ml 720 ml 480 ml Output Urine Total 900 ml 500 ml # Voids 1 2 # Bowel Movements 0 0 1 Result Diagram: 09/08/16 0533 09/08/16 0533 Imaging Last 24 hours Impressions Pelvis X-Ray 09/05/162146 Signed Impressions: Service Date/Time: Monday, September 05, 2016 22:07 - CONCLUSION: Right femoral neck fracture. Pedro Cuellar MD Femur X-Ray [id number] Signed Impressions: Service Date/Time: Monday, September 05, 2016 22:08 - CONCLUSION: Right femoral neck fracture. Pedro Cuellar MD Objective Remarks dressings, new clean and dry. No obvious swelling abdn pillow on, moves toes well Assessment & Plan Ortho Post Op Day #: 2 Problem List: Assessment and Plan Doing well 2 days post op SANGEETHA DC plans discussed DC tuesday Lm Zhang MD Sep 09, 2016 07:45
--- NOTE | 2016-09-09 07:49 | HHI.FF ---
Face to Face Verification Diagnosis: (1) Fracture of femoral neck, right, closed (2) Osteoporosis (3) Leukocytosis (4) HTN (hypertension) (5) Hip fracture, right (6) Renal insufficiency Physical Therapy Gait training Hip: Total hip, Protocol: Right, Posterior hip precautions Right LE Weight Bearing: WB as tolerated Nursing RN: 3 days/week x 2 weeks Nursing: Mango teaching, Dressing changes Dressing Changes: Daily dressing change, Coverderm/Primapore I have seen patient Frannie Ricks on 09/09/16. My clinical findings support the need for the requested home health care services because: Limited ability to care for self Injectable med education/admin I certify that my clinical findings support that this patient is homebound because: Post-op weakness Unable to use public transportation Lm Zhang MD Sep 09, 2016 07:49
[2016-09-09 08:36] VITALS: BP 150/85; PULSE 83; RESP 16; TEMP 98.6; O2SAT 98
[2016-09-09] MEDS: DOCUSATE SODIUM 100 MG CAP PO SCH ×2 (10:29→20:08)
[2016-09-09] MEDS: ACETAMINOPHEN 325 MG TAB PO SCH ×2 (10:30→20:03)
[2016-09-09] MEDS: CHOLECALCIFEROL (VIT D3) LIQ 400 UNITS/ML 50 ML BOTTLE PO SCH (10:30)
[2016-09-09] MEDS: CALCIUM CARBONATE 1.25 GM (CA 500 MG) TAB PO SCH ×2 (10:30→20:03)
[2016-09-09 10:32] VITALS: O2SAT 95
[2016-09-09] MEDS: SODIUM CHLORIDE 0.9% FLUSH 5 ML FLUSH FLUSH SCH ×2 (10:32→21:25)
[2016-09-09 10:36] LABS: HEMATOCRIT 32.3 % (35.0-46.0)
--- NOTE | 2016-09-09 10:54 | HHI.PR ---
Subjective Remarks This is a 56-year-old female with Osteoporosis, Hypothyroidism, brought in to ER with secondary Right Hip pain no traumatic event reported, seen by Urgent Care 09/03/16, Pelvis/Femur X-ray with right femoral neck fracture. Patient stable seen in the room and discussed with patient in the room, status post Surgery 09/07/16 with Post operative diagnosis of Markedly displaced fracture right femoral neck, status post Total Hip replacement arthroplasty, stable working with Physical therapy specialist, no complaint, no nausea, vomit or diarrhea, had bowel movements, voiding after [place] cath removed. recommended by specialist for discharge next Tuesday. With Diagnosis of markedly Displaced Fracture Right femoral Neck status post Total Right Hip replacement arthroplasty by Doctor Lm Zhang. Objective Vital Signs Date Time Temp Pulse Resp B/P Pulse Ox O2 Delivery O2 Flow Rate FiO2 09/09/16 08:36 98.6 83 16 150/85 98 09/09/16 00:20 98.6 69 15 121/74 98 09/08/16 20:47 96 21 09/08/16 16:00 98.2 71 16 116/71 97 09/08/16 11:51 98.0 85 16 104/54 97 I/O 09/08/16 09/08/16 09/08/16 09/09/16 09/09/16 09/09/16 07:00 15:00 23:00 07:00 15:00 23:00 Intake Total 480 ml 720 ml 720 ml 480 ml Output Total 900 ml 500 ml Balance -420 ml 720 ml 220 ml 480 ml Intake Oral 480 ml 720 ml 720 ml 480 ml Output Urine Total 900 ml 500 ml # Voids 1 2 # Bowel Movements 0 0 1 Result Diagram: 09/09/16 1009 09/08/16 0533 Imaging Last Impressions Hip X-Ray 09/07/16 0000 Signed Impressions: Service Date/Time: Wednesday, September 07, 2016 16:48 - CONCLUSION: Right hip prosthesis. Abdon Gutierrez MD Lower Extremity CT 09/06/16 0000 Signed Impressions: Service Date/Time: Tuesday, September 06, 2016 11:44 - CONCLUSION: Angulated basicervical fracture of the right femoral neck. Intact acetabulum and bony pelvis. Lumbosacral facet arthropathy. Edmund Daniel MD Pelvis X-Ray [id number] Signed Impressions: Service Date/Time: Monday, September 05, 2016 22:07 - CONCLUSION: Right femoral neck fracture. Pedro Cuellar MD Femur X-Ray 09/[id number] Signed Impressions: Service Date/Time: Monday, September 05, 2016 22:08 - CONCLUSION: Right femoral neck fracture. Pedro Cuellar MD Procedures No procedures performed to the patient. Other Results Laboratory Tests Test 09/05/16 09/06/16 09/06/16 09/07/16 22:45 02:49 07:00 08:26 Prothrombin Time 10.8 SEC Prothromb Time International 1.0 RATIO Ratio Activated Partial 23.4 SEC Thromboplast Time White Blood Count 9.8 TH/MM3 Red Blood Count 4.38 MIL/MM3 Mean Corpuscular Volume 86.1 FL Mean Corpuscular Hemoglobin 28.5 PG Mean Corpuscular Hemoglobin 33.1 % Concent Red Cell Distribution Width 14.2 % Platelet Count 251 TH/MM3 Mean Platelet Volume 8.5 FL Neutrophils (%) (Auto) 75.1 % Lymphocytes (%) (Auto) 18.4 % Monocytes (%) (Auto) 5.7 % Eosinophils (%) (Auto) 0.2 % Basophils (%) (Auto) 0.6 % Neutrophils # (Auto) 7.4 TH/MM3 Lymphocytes # (Auto) 1.8 TH/MM3 Monocytes # (Auto) 0.6 TH/MM3 Eosinophils # (Auto) 0.0 TH/MM3 Basophils # (Auto) 0.1 TH/MM3 CBC Comment DIFF FINAL Differential Comment Total Bilirubin 0.3 MG/DL Aspartate Amino Transf 19 U/L (AST/SGOT) Alanine Aminotransferase 41 U/L (ALT/SGPT) Alkaline Phosphatase 31 U/L Albumin 3.3 GM/DL Blood Type A NEGATIVE Antibody Screen NEGATIVE Blood Bank Comment Urine Color YELLOW Urine Turbidity CLEAR Urine pH 5.5 Urine Specific [place] 1.024 Urine Protein NEG mg/dL Urine Glucose (UA) NEG mg/dL Urine Ketones NEG mg/dL Urine Occult Blood NEG Urine Nitrite NEG Urine Bilirubin NEG Urine Urobilinogen LESS THAN 2.0 MG/DL Urine Leukocyte Esterase NEG Urine RBC 1 /hpf Urine WBC 2 /hpf Urine Squamous Epithelial <1 /hpf Cells Urine Hyaline Casts 1 /lpf Urine Mucus FEW /lpf Microscopic Urinalysis Comment CULT NOT INDICATED 25-Hydroxy Vitamin D Total 19.9 ng/ML Parathyroid Hormone (Intact) 134.1 PG/ML Vitamin D 1,25-Dihydroxy 87 pg/mL Test 09/08/16 09/09/16 05:33 10:09 Sodium Level 141 MEQ/L Potassium Level 4.0 MEQ/L Chloride Level 107 MEQ/L Carbon Dioxide Level 27.6 MEQ/L Anion Gap 6 MEQ/L Blood Urea Nitrogen 9 MG/DL Creatinine 0.65 MG/DL Estimat Glomerular Filtration 94 ML/MIN Rate Random Glucose 121 MG/DL Calcium Level 7.4 MG/DL Protein Corrected Calcium 8.7 MG/DL Total Protein 4.8 GM/DL Hemoglobin 10.8 GM/DL Hematocrit 32.3 % Objective Remarks GENERAL: No acute distress. HEENT: PERRLA, EOMI. No scleral icterus or conjunctival pallor. No lid lag or facial droop. CARDIOVASCULAR: Regular rate and rhythm. No obvious murmurs to auscultation. No chest tenderness to palpation. RESPIRATORY: No obvious rhonchi or wheezing. Clear to auscultation. Breath sounds equal bilaterally. GASTROINTESTINAL: Abdomen soft, non-tender, nondistended. BS normal. MUSCULOSKELETAL: Right hip dressed. NEUROLOGICAL: Awake, alert and oriented x4. No focal neurologic deficits. Medications and IVs Current Medications Medications (Trade) Dose Ordered Sig/Lilliana Route Start Time Stop Time Status Last Admin (NS Flush) 2 ml UNSCH PRN FLUSH 09/05/16 23:30 09/06/16 17:27 (NS Flush) 2 ml BID FLUSH 09/06/16 09:00 09/09/16 10:32 (Zofran Inj) 4 mg Q6H PRN IVP 09/05/16 23:30 (Dulcolax Supp) 10 mg DAILY PRN ID 09/05/16 23:30 (Tylenol) 650 mg Q6H PRN PO 09/05/16 23:30 (Dilaudid Pf Inj) 1 mg Q3H PRN IV 09/05/16 23:30 09/07/16 09:03 (Synthroid) 50 mcg DAILY@0600 PO 09/07/16 06:00 09/09/16 05:26 Pravastatin Sodium 20 mg 20 mg HS PO 09/06/16 21:00 09/08/16 20:51 (Cyklokapron Inj/ NS Inj) 107.8 ml @ 200 mls/hr ONCE IV 09/06/16 19:15 09/09/16 19:14 09/07/16 13:58 (Hibiclens 4% Top Soln) 1 applic ONCE TOP 09/07/16 01:30 09/10/16 01:29 (Lovenox Inj) 40 mg Q24H SQ 09/08/16 15:30 09/08/16 15:30 ([place] 5-325 Mg) 1 tab Q4H PRN PO 09/07/16 16:15 09/09/16 05:26 ([place] 5-325 Mg) 2 tab Q4H PRN PO 09/07/16 16:15 09/08/16 17:59 (Colace) 100 mg BID PO 09/08/16 21:00 09/09/16 10:29 (Restoril) 15 mg HS PRN PO 09/07/16 21:00 (Narcan Inj) 0.4 mg UNSCH PRN IV 09/07/16 16:15 (Benadryl Inj) 25 mg Q6H PRN IV 09/07/16 16:15 (Oscal) 500 mg Q12HR PO 09/07/16 21:00 09/09/16 10:30 (Vitamin D Liq) 2,000 units DAILY PO 09/08/16 09:00 09/09/16 10:30 (Tylenol) 650 mg BID PO 09/08/16 21:00 09/09/16 10:30 (Pill Splitter) 1 ea UNSCH PRN OTHER 09/08/16 15:45 (Toradol) 10 mg Q6H PO 09/08/16 16:00 09/10/16 15:59 09/09/16 10:29 A/P Assessment and Plan (1) Hip fracture, right ICD Code: S72.001A Status: Acute (2) Osteoporosis ICD Code: M81.0 Status: Acute (3) Renal insufficiency ICD Code: N28.9 Status: Acute (4) Leukocytosis ICD Code: D72.829 Status: Acute (5) HTN (hypertension) ICD Code: I10 Status: Acute Assessment and Plan A/P: 1. Right Hip Fx: Markedly displaced fracture right femoral neck, status post Total Right Hip replacement arthroplasty 09/07/16 stable 2. Osteoporosis: on Flomax. c/o right hip pain, seen at Urgent Care 09/03/16, started on Medrol Dosepak and Diclofenac. removed steroids by admitting physician. 3. Acute Renal Injury improved. 4. Leukocytosis: Improved secondary to trauma and steroids. 5. Hypertension Controlled. 6. Hypothyroidism to continue Levothyroxine. DVT Prophylaxis: Lovenox. Social work for d/c planning as needed. Discussed with Patient Discharge Planning As per Orthopedic pricing specialist. Okay for discharge by Medicine. Baldev Craig MD Sep 09, 2016 10:54
[2016-09-09 10:57] LABS: BICARBONATE 27.3 MEQ/L (21.0-32.0); POTASSIUM 3.6 MEQ/L (3.5-5.1)
[2016-09-09 12:52] VITALS: BP 124/82; PULSE 89; RESP 16; TEMP 96; O2SAT 97
[2016-09-09] MEDS ORDERED: MISC-163 (14:10)
[2016-09-09] MEDS ORDERED: MISC-274 (14:10)
[2016-09-09] MEDS: ENOXAPARIN SODIUM 40 MG/0.4 ML SYRINGE SQ SCH (16:20)
[2016-09-09 16:25] VITALS: BP 156/86; PULSE 73; RESP 18; TEMP 97; O2SAT 99
[2016-09-09 19:57] VITALS: BP 114/65; PULSE 105; RESP 18; TEMP 98.9; O2SAT 98
[2016-09-09] MEDS: PRAVASTATIN SOD 20 MG TAB PO SCH (20:02)
[2016-09-10] VITALS: BP 124/69; PULSE 64; RESP 18; TEMP 97.5; O2SAT 99
[2016-09-10] MEDS: ACETAMINOPHEN/HYDROcodone 325 MG/5 MG TAB PO PRN ×3 (03:29→20:40)
[2016-09-10] MEDS: KETOROLAC TROMETHAMINE 10 MG TAB PO SCH ×2 (03:29→09:19)
[2016-09-10] MEDS: LEVOTHYROXINE SODIUM 50 MCG TAB PO SCH (05:55)
--- NOTE | 2016-09-10 07:37 | HHI.PR ---
Subjective Remarks This is a 56-year-old female with Osteoporosis, Hypothyroidism, brought in to ER with secondary Right Hip pain no traumatic event reported, seen by Urgent Care 09/03/16, Pelvis/Femur X-ray with right femoral neck fracture. Patient stable seen in the room and discussed with patient in the room, status post Surgery 09/07/16 with Post operative diagnosis of Markedly displaced fracture right femoral neck, status post Total Hip replacement arthroplasty, stable no complaint, no nausea, vomit or diarrhea, had bowel movements, recommended by Orthopedic surgery for discharge next Tuesday, okay to discharge from Medicine standpoint. Objective Vital Signs Date Time Temp Pulse Resp B/P Pulse Ox O2 Delivery O2 Flow Rate FiO2 09/10/16 00:00 97.5 64 18 124/69 99 09/09/16 19:57 98.9 105 18 114/65 98 09/09/16 16:25 97.0 73 18 156/86 99 09/09/16 12:52 96.0 89 16 124/82 97 09/09/16 10:32 95 21 09/09/16 08:36 98.6 83 16 150/85 98 I/O 09/09/16 09/09/16 09/09/16 09/10/16 09/10/16 09/10/16 07:00 15:00 23:00 07:00 15:00 23:00 Intake Total 480 ml 720 ml 960 ml 240 ml Balance 480 ml 720 ml 960 ml 240 ml Intake Oral 480 ml 720 ml 960 ml 240 ml # Voids 2 3 1 1 # Bowel Movements 1 4 0 0 Result Diagram: 09/09/16 1009 09/09/16 1009 Imaging Last Impressions Hip X-Ray 09/07/16 0000 Signed Impressions: Service Date/Time: Wednesday, September 07, 2016 16:48 - CONCLUSION: Right hip prosthesis. Abdon Gutierrez MD Lower Extremity CT 09/06/16 0000 Signed Impressions: Service Date/Time: Tuesday, September 06, 2016 11:44 - CONCLUSION: Angulated basicervical fracture of the right femoral neck. Intact acetabulum and bony pelvis. Lumbosacral facet arthropathy. Edmund Daniel MD Pelvis X-Ray 09/05/16 2147 Signed Impressions: Service Date/Time: Monday, September 05, 2016 22:07 - CONCLUSION: Right femoral neck fracture. Pedro Cuellar MD Femur X-Ray 09/05/16 3284 Signed Impressions: Service Date/Time: Monday, September 05, 2016 22:08 - CONCLUSION: Right femoral neck fracture. Pedro Cuellar MD Procedures Markedly displaced fracture right femoral neck, status post Total Hip replacement arthroplasty Other Results Laboratory Tests Test 09/06/16 09/06/16 09/07/16 09/08/16 02:49 07:00 08:26 05:33 White Blood Count 9.8 TH/MM3 Red Blood Count 4.38 MIL/MM3 Mean Corpuscular Volume 86.1 FL Mean Corpuscular Hemoglobin 28.5 PG Mean Corpuscular Hemoglobin 33.1 % Concent Red Cell Distribution Width 14.2 % Platelet Count 251 TH/MM3 Mean Platelet Volume 8.5 FL Neutrophils (%) (Auto) 75.1 % Lymphocytes (%) (Auto) 18.4 % Monocytes (%) (Auto) 5.7 % Eosinophils (%) (Auto) 0.2 % Basophils (%) (Auto) 0.6 % Neutrophils # (Auto) 7.4 TH/MM3 Lymphocytes # (Auto) 1.8 TH/MM3 Monocytes # (Auto) 0.6 TH/MM3 Eosinophils # (Auto) 0.0 TH/MM3 Basophils # (Auto) 0.1 TH/MM3 CBC Comment DIFF FINAL Differential Comment Total Bilirubin 0.3 MG/DL Aspartate Amino Transf 19 U/L (AST/SGOT) Alanine Aminotransferase 41 U/L (ALT/SGPT) Alkaline Phosphatase 31 U/L Albumin 3.3 GM/DL Blood Type A NEGATIVE Antibody Screen NEGATIVE Blood Bank Comment Urine Color YELLOW Urine Turbidity CLEAR Urine pH 5.5 Urine Specific [place] 1.024 Urine Protein NEG mg/dL Urine Glucose (UA) NEG mg/dL Urine Ketones NEG mg/dL Urine Occult Blood NEG Urine Nitrite NEG Urine Bilirubin NEG Urine Urobilinogen LESS THAN 2.0 MG/DL Urine Leukocyte Esterase NEG Urine RBC 1 /hpf Urine WBC 2 /hpf Urine Squamous Epithelial <1 /hpf Cells Urine Hyaline Casts 1 /lpf Urine Mucus FEW /lpf Microscopic Urinalysis Comment CULT NOT INDICATED 25-Hydroxy Vitamin D Total 19.9 ng/ML Parathyroid Hormone (Intact) 134.1 PG/ML Vitamin D 1,25-Dihydroxy 87 pg/mL Protein Corrected Calcium 8.7 MG/DL Total Protein 4.8 GM/DL Test 09/09/16 10:09 Hemoglobin 10.8 GM/DL Hematocrit 32.3 % Sodium Level 139 MEQ/L Potassium Level 3.6 MEQ/L Chloride Level 103 MEQ/L Carbon Dioxide Level 27.3 MEQ/L Anion Gap 9 MEQ/L Blood Urea Nitrogen 11 MG/DL Creatinine 0.70 MG/DL Estimat Glomerular Filtration 86 ML/MIN Rate Random Glucose 198 MG/DL Calcium Level 8.1 MG/DL Objective Remarks GENERAL: No acute distress. HEENT: PERRLA, EOMI. No scleral icterus or conjunctival pallor. No lid lag or facial droop. CARDIOVASCULAR: Regular rate and rhythm. No obvious murmurs to auscultation. No chest tenderness to palpation. RESPIRATORY: No obvious rhonchi or wheezing. Clear to auscultation. Breath sounds equal bilaterally. GASTROINTESTINAL: Abdomen soft, non-tender, nondistended. BS normal. MUSCULOSKELETAL: Right hip dressed. NEUROLOGICAL: Awake, alert and oriented x4. No focal neurologic deficits. Medications and IVs Current Medications Medications (Trade) Dose Ordered Sig/Lilliana Route Start Time Stop Time Status Last Admin (NS Flush) 2 ml UNSCH PRN FLUSH 09/05/16 23:30 09/06/16 17:27 (NS Flush) 2 ml BID FLUSH 09/06/16 09:00 09/09/16 10:32 (Zofran Inj) 4 mg Q6H PRN IVP 09/05/16 23:30 (Dulcolax Supp) 10 mg DAILY PRN [place] 09/05/16 23:30 (Tylenol) 650 mg Q6H PRN PO 09/05/16 23:30 (Dilaudid Pf Inj) 1 mg Q3H PRN IV 09/05/16 23:30 09/07/16 09:03 (Synthroid) 50 mcg DAILY@0600 PO 09/07/16 06:00 09/10/16 05:55 (Pravachol) 20 mg HS PO 09/06/16 21:00 09/09/16 20:02 (Lovenox Inj) 40 mg Q24H SQ 09/08/16 15:30 09/09/16 16:20 ([place] 5-325 Mg) 1 tab Q4H PRN PO 09/07/16 16:15 09/10/16 03:29 ([place] 5-325 Mg) 2 tab Q4H PRN PO 09/07/16 16:15 09/09/16 16:23 (Colace) 100 mg BID PO 09/08/16 21:00 09/09/16 10:29 (Restoril) 15 mg HS PRN PO 09/07/16 21:00 (Narcan Inj) 0.4 mg UNSCH PRN IV 09/07/16 16:15 (Benadryl Inj) 25 mg Q6H PRN IV 09/07/16 16:15 (Oscal) 500 mg Q12HR PO 09/07/16 21:00 09/09/16 20:03 (Vitamin D Liq) 2,000 units DAILY PO 09/08/16 09:00 09/09/16 10:30 (Tylenol) 650 mg BID PO 09/08/16 21:00 09/09/16 20:03 (Pill Splitter) 1 ea UNSCH PRN OTHER 09/08/16 15:45 (Toradol) 10 mg Q6H PO 09/08/16 16:00 09/10/16 15:59 09/10/16 03:29 A/P Assessment and Plan (1) Hip fracture, right ICD Code: S72.001A Status: Acute (2) Osteoporosis ICD Code: M81.0 Status: Acute (3) Renal insufficiency ICD Code: N28.9 Status: Acute (4) Leukocytosis ICD Code: D72.829 Status: Acute (5) HTN (hypertension) ICD Code: I10 Status: Acute Assessment and Plan A/P: 1. Right Hip Fx: Markedly displaced fracture right femoral neck, status post Total Right Hip replacement arthroplasty 09/07/16 stable 2. Osteoporosis: on Flomax. c/o right hip pain, seen at Urgent Care 09/03/16, started on Medrol Dosepak and Diclofenac. removed steroids by admitting physician. 3. Acute Renal Injury improved. 4. Leukocytosis: Improved secondary to trauma and steroids. 5. Hypertension Controlled. 6. Hypothyroidism to continue Levothyroxine. 7. Loose stools secondary to the use of Stool Softner discontinued. DVT Prophylaxis: Lovenox. Social work for d/c planning as needed. Discussed with Patient probable discharge by his attending physician later today. Discharge Planning As per Orthopedic family development specialist. Okay for discharge by Medicine. Baldev Craig MD Sep 10, 2016 07:37 Baldev Craig MD Sep 10, 2016 07:37
[2016-09-10 07:54] VITALS: BP 128/78; PULSE 67; RESP 18; TEMP 98.1; O2SAT 99
[2016-09-10] MEDS: CHOLECALCIFEROL (VIT D3) LIQ 400 UNITS/ML 50 ML BOTTLE PO SCH (09:18)
[2016-09-10] MEDS: CALCIUM CARBONATE 1.25 GM (CA 500 MG) TAB PO SCH ×2 (09:19→20:37)
[2016-09-10] MEDS: SODIUM CHLORIDE 0.9% FLUSH 5 ML FLUSH FLUSH SCH ×2 (09:19→20:40)
[2016-09-10] MEDS: DOCUSATE SODIUM 100 MG CAP PO SCH ×2 (09:19→20:37)
[2016-09-10] MEDS: ACETAMINOPHEN 325 MG TAB PO SCH ×2 (09:19→20:40)
[2016-09-10 10:36] LABS: TRANSFERRIN IRON PROFILE 162 MG/DL (200-360)
[2016-09-10 12:00] VITALS: BP 121/65; PULSE 83; RESP 18; TEMP 96.9; O2SAT 93
[2016-09-10] MEDS ORDERED: ENOX40P SQ (13:05)
[2016-09-10] MEDS ORDERED: CALC950T PO (13:05)
[2016-09-10] MEDS ORDERED: HYDR-3516 PO (13:05)
[2016-09-10] MEDS ORDERED: CHOL400D2 PO (13:05)
[2016-09-10] MEDS ORDERED: FERR324T8 PO (13:05)
--- NOTE | 2016-09-10 13:09 | PD.ORT.PN ---
Subjective Post Op Day #: 3 Subjective Remarks upto bathroom several times, incliduing BM Objective Vitals Vital Signs Date Time Temp Pulse Resp B/P Pulse Ox O2 Delivery O2 Flow Rate FiO2 09/10/16 07:54 98.1 67 18 128/78 99 09/10/16 00:00 97.5 64 18 124/69 99 09/09/16 19:57 98.9 105 18 114/65 98 09/09/16 16:25 97.0 73 18 156/86 99 I/O 09/09/16 09/09/16 09/09/16 09/10/16 09/10/16 09/10/16 07:00 15:00 23:00 07:00 15:00 23:00 Intake Total 480 ml 720 ml 960 ml 240 ml Balance 480 ml 720 ml 960 ml 240 ml Intake Oral 480 ml 720 ml 960 ml 240 ml # Voids 2 3 1 1 # Bowel Movements 1 4 0 0 Result Diagram: 09/09/16 1009 09/09/16 1009 Imaging Last 24 hours Impressions Pelvis X-Ray 09/05/162146 Signed Impressions: Service Date/Time: Monday, September 05, 2016 22:07 - CONCLUSION: Right femoral neck fracture. Pedro Cuellar MD Femur X-Ray 09/05/162146 Signed Impressions: Service Date/Time: Monday, September 05, 2016 22:08 - CONCLUSION: Right femoral neck fracture. Pedro Cuellar MD Objective Remarks SITTING oob, ENJOYING FAMILY. comfortable. Aware of dislocation precautions Assessment & Plan Ortho Post Op Day #: 3 Problem List: Assessment and Plan Doing well 3 days post op SANGEETHA DC plans discussed DC tuesday Has malnutrition as ervidenced by low protein, transferrin, iron and vitamin D Put on high protein, low calorie diet, oral vit D, Iron and calcium Lm Zhang MD Sep 10, 2016 13:09
[2016-09-10] MEDS: ENOXAPARIN SODIUM 40 MG/0.4 ML SYRINGE SQ SCH (15:36)
[2016-09-10 16:00] VITALS: BP 129/84; PULSE 87; RESP 18; TEMP 96.9; O2SAT 99
[2016-09-10 20:00] VITALS: BP 137/63; PULSE 92; RESP 20; TEMP 97.7; O2SAT 97
[2016-09-10] MEDS: PRAVASTATIN SOD 20 MG TAB PO SCH (20:37)
[2016-09-10] MEDS: FERROUS FUMARATE 325 MG TAB (106 MG ELEMENTAL IRON) PO SCH (20:37)
[2016-09-11] VITALS: BP 120/61; PULSE 76; RESP 20; TEMP 97.9; O2SAT 98
[2016-09-11] MEDS: ACETAMINOPHEN/HYDROcodone 325 MG/5 MG TAB PO PRN ×3 (02:18→14:48)
[2016-09-11] MEDS: LEVOTHYROXINE SODIUM 50 MCG TAB PO SCH (06:14)
[2016-09-11 08:00] VITALS: BP 112/84; PULSE 70; RESP 18; TEMP 98.1; O2SAT 98
--- NOTE | 2016-09-11 08:39 | PD.ORT.PN ---
Subjective Post Op Day #: 4 Pain Scale: doing well Subjective Remarks upto bathroom several times, incliduing BM Objective Vitals Vital Signs Date Time Temp Pulse Resp B/P Pulse Ox O2 Delivery O2 Flow Rate FiO2 09/11/16 08:00 98.1 70 18 112/84 98 09/11/16 00:00 97.9 76 20 120/61 98 09/10/16 20:00 97.7 92 20 137/63 97 09/10/16 16:00 96.9 87 18 129/84 99 09/10/16 12:00 96.9 83 18 121/65 93 I/O 09/10/16 09/10/16 09/10/16 09/11/16 09/11/16 09/11/16 07:00 15:00 23:00 07:00 15:00 23:00 Intake Total 240 ml 720 ml 480 ml 240 ml Balance 240 ml 720 ml 480 ml 240 ml Intake Oral 240 ml 720 ml 480 ml 240 ml # Voids 1 2 1 1 # Bowel Movements 0 1 1 0 Result Diagram: 09/09/16 1009 09/09/16 1009 Imaging Last 24 hours Impressions Pelvis X-Ray 09/05/162146 Signed Impressions: Service Date/Time: Monday, September 05, 2016 22:07 - CONCLUSION: Right femoral neck fracture. Pedro Cuellar MD Femur X-Ray 09/05/162146 Signed Impressions: Service Date/Time: Monday, September 05, 2016 22:08 - CONCLUSION: Right femoral neck fracture. Pedro Cuellar MD Objective Remarks in bed, comfortable, nurse changed dressing, reported looking good. right hip has no redness or bruising, drsgs dry. moves toes and foot well without pain. Assessment & Plan Ortho Post Op Day #: 4 Problem List: Assessment and Plan DC plan, prescriptions, ADL, follow up all discussed Lm Zhang MD Sep 11, 2016 08:39
[2016-09-11] MEDS: DOCUSATE SODIUM 100 MG CAP PO SCH (09:00)
[2016-09-11] MEDS: ACETAMINOPHEN 325 MG TAB PO SCH (09:02)
[2016-09-11] MEDS: SODIUM CHLORIDE 0.9% FLUSH 5 ML FLUSH FLUSH SCH (09:02)
[2016-09-11] MEDS: CHOLECALCIFEROL (VIT D3) LIQ 400 UNITS/ML 50 ML BOTTLE PO SCH (09:02)
[2016-09-11] MEDS: CALCIUM CARBONATE 1.25 GM (CA 500 MG) TAB PO SCH (09:02)
[2016-09-11] MEDS: FERROUS FUMARATE 325 MG TAB (106 MG ELEMENTAL IRON) PO SCH (09:02)
--- NOTE | 2016-09-11 09:14 | HHI.PR ---
Subjective Remarks This is a 56-year-old female with Osteoporosis, Hypothyroidism, brought in to ER with secondary Right Hip pain no traumatic event reported, seen by Urgent Care 09/03/16, Pelvis/Femur X-ray with right femoral neck fracture. Patient stable seen in the room and discussed with patient in the room, status post Surgery 09/07/16 with Post operative diagnosis of Markedly displaced fracture right femoral neck, status post Total Hip replacement arthroplasty, stable no complaint, no nausea, vomit or diarrhea, had bowel movements, recommended by Orthopedic surgery for discharge today going home with [facility]. Objective Vital Signs Date Time Temp Pulse Resp B/P Pulse Ox O2 Delivery O2 Flow Rate FiO2 09/11/16 08:00 98.1 70 18 112/84 98 09/11/16 00:00 97.9 76 20 120/61 98 09/10/16 20:00 97.7 92 20 137/63 97 09/10/16 16:00 96.9 87 18 129/84 99 09/10/16 12:00 96.9 83 18 121/65 93 I/O 09/10/16 09/10/16 09/10/16 09/11/16 09/11/16 09/11/16 07:00 15:00 23:00 07:00 15:00 23:00 Intake Total 240 ml 720 ml 480 ml 240 ml Balance 240 ml 720 ml 480 ml 240 ml Intake Oral 240 ml 720 ml 480 ml 240 ml # Voids 1 2 1 1 # Bowel Movements 0 1 1 0 Result Diagram: 09/09/16 1009 09/09/16 1009 Imaging Last Impressions Hip X-Ray 09/07/16 0000 Signed Impressions: Service Date/Time: Wednesday, September 07, 2016 16:48 - CONCLUSION: Right hip prosthesis. Abdon Gutierrez MD Lower Extremity CT 09/06/16 0000 Signed Impressions: Service Date/Time: Tuesday, September 06, 2016 11:44 - CONCLUSION: Angulated basicervical fracture of the right femoral neck. Intact acetabulum and bony pelvis. Lumbosacral facet arthropathy. Edmund Daniel MD Pelvis X-Ray 09/05/162146 Signed Impressions: Service Date/Time: Monday, September 05, 2016 22:07 - CONCLUSION: Right femoral neck fracture. Pedro Cuellar MD Femur X-Ray 09/05/167 Signed Impressions: Service Date/Time: Monday, September 05, 2016 22:08 - CONCLUSION: Right femoral neck fracture. Pedro Cuellar MD Procedures Markedly displaced fracture right femoral neck, status post Total Hip replacement arthroplasty Other Results Laboratory Tests Test 09/07/16 09/08/16 09/09/16 09/10/16 08:26 05:33 10:09 09:25 25-Hydroxy Vitamin D Total 19.9 ng/ML Parathyroid Hormone (Intact) 134.1 PG/ML Vitamin D 1,25-Dihydroxy 87 pg/mL Protein Corrected Calcium 8.7 MG/DL Total Protein 4.8 GM/DL Hemoglobin 10.8 GM/DL Hematocrit 32.3 % Sodium Level 139 MEQ/L Potassium Level 3.6 MEQ/L Chloride Level 103 MEQ/L Carbon Dioxide Level 27.3 MEQ/L Anion Gap 9 MEQ/L Blood Urea Nitrogen 11 MG/DL Creatinine 0.70 MG/DL Estimat Glomerular Filtration 86 ML/MIN Rate Random Glucose 198 MG/DL Calcium Level 8.1 MG/DL Iron Level 25 MCG/DL Total Iron Binding Capacity 227 MCG/DL Percent Iron Saturation 11.0 % Transferrin 162 MG/DL Objective Remarks GENERAL: No acute distress. HEENT: PERRLA, EOMI. No scleral icterus or conjunctival pallor. No lid lag or facial droop. CARDIOVASCULAR: Regular rate and rhythm. No obvious murmurs to auscultation. No chest tenderness to palpation. RESPIRATORY: No obvious rhonchi or wheezing. Clear to auscultation. Breath sounds equal bilaterally. GASTROINTESTINAL: Abdomen soft, non-tender, nondistended. BS normal. MUSCULOSKELETAL: Right hip dressed. NEUROLOGICAL: Awake, alert and oriented x4. No focal neurologic deficits. Medications and IVs Current Medications Medications (Trade) Dose Ordered Sig/[place]ill[place] Route Start Time Stop Time Status Last Admin (NS Flush) 2 ml UNSCH PRN FLUSH 09/05/16 23:30 09/06/16 17:27 (NS Flush) 2 ml BID FLUSH 09/06/16 09:00 09/11/16 09:02 (Zofran Inj) 4 mg Q6H PRN IVP 09/05/16 23:30 (Dulcolax Supp) 10 mg DAILY PRN [place] 09/05/16 23:30 (Tylenol) 650 mg Q6H PRN PO 09/05/16 23:30 (Dilaudid Pf Inj) 1 mg Q3H PRN IV 09/05/16 23:30 09/07/16 09:03 (Synthroid) 50 mcg DAILY@0600 PO 09/07/16 06:00 09/11/16 06:14 (Pravachol) 20 mg HS PO 09/06/16 21:00 09/10/16 20:37 (Lovenox Inj) 40 mg Q24H SQ 09/08/16 15:30 09/10/16 15:36 ([place] 5-325 Mg) 1 tab Q4H PRN PO 09/07/16 16:15 09/11/16 02:18 ([place] 5-325 Mg) 2 tab Q4H PRN PO 09/07/16 16:15 09/11/16 06:14 (Colace) 100 mg BID PO 09/08/16 21:00 09/10/16 20:37 (Restoril) 15 mg HS PRN PO 09/07/16 21:00 (Narcan Inj) 0.4 mg UNSCH PRN IV 09/07/16 16:15 (Benadryl Inj) 25 mg Q6H PRN IV 09/07/16 16:15 (Oscal) 500 mg Q12HR PO 09/07/16 21:00 09/11/16 09:02 (Vitamin D Liq) 2,000 units DAILY PO 09/08/16 09:00 09/11/16 09:02 (Tylenol) 650 mg BID PO 09/08/16 21:00 09/11/16 09:02 (Pill Splitter) 1 ea UNSCH PRN OTHER 09/08/16 15:45 (Hemocyte) 325 mg Q12HR PO 09/10/16 21:00 09/11/16 09:02 A/P Assessment and Plan (1) Hip fracture, right ICD Code: S72.001A Status: Acute (2) Osteoporosis ICD Code: M81.0 Status: Acute (3) Renal insufficiency ICD Code: N28.9 Status: Acute (4) Leukocytosis ICD Code: D72.829 Status: Acute (5) HTN (hypertension) ICD Code: I10 Status: Acute Assessment and Plan A/P: 1. Right Hip Fx: Markedly displaced fracture right femoral neck, status post Total Right Hip replacement Arthroplasty 09/07/16 stable working with Physical therapy, as per Orthopedic surgery okay to discharge Home with [facility] for PT. 2. Osteoporosis: on Flomax. c/o right hip pain, seen at Urgent Care 09/03/16, started on Medrol Dosepak and Diclofenac. removed steroids by admitting physician. 3. Acute Renal Injury improved. 4. Leukocytosis: Improved secondary to trauma and steroids. 5. Hypertension Controlled. 6. Hypothyroidism to continue Levothyroxine. DVT Prophylaxis: Lovenox. Social work for d/c planning as needed. Discussed with Patient Okay to discharge home from Medical Standpoint. Discharge Planning As per Orthopedic laboratory technical specialist. Okay for discharge by Medicine. Baldev Craig MD Sep 11, 2016 09:14 Baldev Craig MD Sep 11, 2016 09:14
--- NOTE | 2016-09-11 11:00 | HHI.DS ---
Discharge Summary Admission Date Sep 05, 2016 at 22:58 Discharge Date: Sep 11, 2016 Admitting Diagnosis Right Femoral Neck Fracture (1) Hip fracture, right ICD Code: S72.001A Diagnosis: Principal (2) Osteoporosis ICD Code: M81.0 Diagnosis: Secondary (3) Renal insufficiency ICD Code: N28.9 Diagnosis: Secondary (4) Leukocytosis ICD Code: D72.829 Diagnosis: Secondary (5) HTN (hypertension) ICD Code: I10 Diagnosis: Secondary Procedures Markedly displaced fracture right femoral neck, status post Total Hip replacement arthroplasty Brief History - From Admission This is a 56-year-old female with a PMH of Osteoporosis and Hypothyroidism who was brought to the ER by EMS secondary to complaints of right hip pain. Per pt pain started approx 4 days ago, no trauma/injury reported. Seen at Urgent Care Clinic on 09/03/16, s/p Hip X-ray w/ arthritis per her report and prescribed Medrol Dosepak and Diclofenac. Minimal improvement in pain complaints. Tonight states she sat down on her couch and heard a "crack", had immediate severe pain in right hip. On arrival, BP 162/91, HR 88, O2 sat 96% on RA, Afebrile. WBC 12.3. Creatinine 1.24, no bruits labs for comparison. Pelvis/ Femur X-ray with right femoral neck fracture. Dr. Corona consulted by ER physician, recommended consult for Dr. Carmichael for am w/ plan for surgical intervention. CBC/BMP: 09/09/16 1009 09/09/16 1009 Significant Findings Laboratory Tests Test 09/09/16 09/10/16 10:09 09:25 Hemoglobin 10.8 GM/DL (11.6-15.3) Hematocrit 32.3 % (35.0-46.0) Estimat Glomerular Filtration 86 ML/MIN (>89) Rate Random Glucose 198 MG/DL (74-106) Calcium Level 8.1 MG/DL (8.5-10.1) Iron Level 25 MCG/DL (50-170) Total Iron Binding Capacity 227 MCG/DL (250-450) Percent Iron Saturation 11.0 % (20-50) Transferrin 162 MG/DL (213-418) Imaging Last Impressions Hip X-Ray 09/07/16 0000 Signed Impressions: Service Date/Time: Wednesday, September 07, 2016 16:48 - CONCLUSION: Right hip prosthesis. Abdon Gutierrez MD Lower Extremity CT 09/06/16 0000 Signed Impressions: Service Date/Time: Tuesday, September 06, 2016 11:44 - CONCLUSION: Angulated basicervical fracture of the right femoral neck. Intact acetabulum and bony pelvis. Lumbosacral facet arthropathy. Edmund Daniel MD Pelvis X-Ray 09/05/162146 Signed Impressions: Service Date/Time: Monday, September 05, 2016 22:07 - CONCLUSION: Right femoral neck fracture. Pedro Cuellar MD Femur X-Ray 09/05/162146 Signed Impressions: Service Date/Time: Monday, September 05, 2016 22:08 - CONCLUSION: Right femoral neck fracture. Pedro Cuellar MD PE at Discharge GENERAL: No acute distress. HEENT: PERRLA, EOMI. No scleral icterus or conjunctival pallor. No lid lag or facial droop. CARDIOVASCULAR: Regular rate and rhythm. No obvious murmurs to auscultation. No chest tenderness to palpation. RESPIRATORY: No obvious rhonchi or wheezing. Clear to auscultation. Breath sounds equal bilaterally. GASTROINTESTINAL: Abdomen soft, non-tender, nondistended. BS normal. MUSCULOSKELETAL: Right hip dressed. NEUROLOGICAL: Awake, alert and oriented x4. No focal neurologic deficits. Hospital Course This is a 56-year-old female with Osteoporosis, Hypothyroidism, brought in to ER with secondary Right Hip pain no traumatic event reported, seen by Urgent Care 09/03/16, Pelvis/Femur X-ray with right femoral neck fracture. Patient stable seen in the room and discussed with patient in the room, status post Surgery 09/07/16 with Post operative diagnosis of Markedly displaced fracture right femoral neck, status post Total Hip replacement arthroplasty, stable no complaint, no nausea, vomit or diarrhea, had bowel movements, recommended by Orthopedic surgery for discharge today going home with [facility] [place]. Assessment and Plan A/P: 1. Right Hip Fx: Markedly displaced fracture right femoral neck, status post Total Right Hip replacement Arthroplasty 03/07/17 stable working with Physical therapy, as per Orthopedic surgery okay to discharge Home with [facility] [place] for PT. 2. Osteoporosis: on Flomax. c/o right hip pain, seen at Urgent Care 09/03/16, started on Medrol Dosepak and Diclofenac. removed steroids by admitting physician. 3. Acute Renal Injury improved. 4. Leukocytosis: Improved secondary to trauma and steroids. 5. Hypertension Controlled. 6. Hypothyroidism to continue Levothyroxine. DVT Prophylaxis: Lovenox. Social work for d/c planning as needed. Discussed with Patient Okay to discharge home from Medical Standpoint. Discharge Planning As per Orthopedic risk management specialist. Okay for discharge by Medicine. Pt Condition on Discharge: Good Discharge Disposition: Disch w/ Home Health Serv Discharge Time: <= 30 minutes Discharge Instructions DIET: Follow Instructions for: As Tolerated, No Restrictions Activities you can perform: Weight Bearing as Juliette Activities to Avoid: Lifting/Bending, Shower, Driving, Sexual Activity Baldev Craig MD Sep 11, 2016 11:00
[2016-09-11 12:00] VITALS: BP 131/74; PULSE 87; RESP 18; TEMP 97.7; O2SAT 97
[2016-09-11] MEDS: ENOXAPARIN SODIUM 40 MG/0.4 ML SYRINGE SQ SCH (14:50)
--- NOTE | 2016-09-17 05:17 | MD ---
cc: JOANNA GALEANO ADMISSION DATE: 09/05/2016 DISCHARGE DATE: 09/11/2016 ADMISSION DIAGNOSIS Fracture right femoral neck, displaced, nontraumatic. DISCHARGE DIAGNOSES 1. Fracture right femoral neck, displaced, nontraumatic. 2. Probable severe osteoporosis/osteomalacia. 3. Hypovitaminosis. 4. Malnutrition with severely low total protein and albumin. 5. Iron deficiency. HISTORY History consisted of spontaneous onset of pain on September 02 while she was at work and she had to limp and hold onto em, etc. It got worse on Tuesday and she went to an Urgent Care Center where they x-rayed her and sent her home on steroids and pain medication. On the day of admission she sat down after eating supper and felt a pop in the right hip with immediate severe pain and inability to ambulate. She was brought to the emergency room where she was evaluated, x-rayed and admitted to the hospital. LABORATORY STUDIES Essentially normal CBC and chemistry but her detailed workup indicated a total protein of 4.8 and low vitamin D level as well as the low iron, TIBC and serum transferrin levels. HOSPITAL COURSE CT scan was performed for further assess the fracture. She was taken to the operating room on September 07, 2016, at which time she had total hip replacement arthroplasty performed with no complications. Her postoperative course was essentially uneventful. This was not an elective hip replacement and therefore it takes a little bit longer to educate the patient and get her going. The patient was placed on calcium, vitamin D, iron and a high protein diet during the admission. The patient now ambulates with a walker, weightbearing as tolerated. She has been advised dislocation precautions. Home care has been arranged for subcutaneous Lovenox daily for two weeks for prophylactic anticoagulation, she has been prescribed calcium citrate, vitamin D drops, ferrous fumarate and also advised to take one Centrum Silver daily. Prescription for hydrocodone given, 1-2 q.i.d. p.r.n. for pain. Home care has been arranged. FOLLOWUP She is to see me in the office on September 23 for followup. CONDITION ON DISCHARGE Good and condition stable. MD ERNESTINA Rincon/AGNES /8:43 AM 4:05 AM
== END 2016-09-11 16:16 | disposition home health service (06) | DRG 470 ==
LOC: NEPC 21:16 → NEDA 22:58 → N06B 09-06 00:24
PROVIDERS: ADMIT Internal Medicine; ATTEND Internal Medicine
PROC: 0SR903A Replacement of Right Hip Joint with Ceramic Synthetic Substitute, Uncemented, Open Approach (ICD-10-PCS; principal; 2016-09-07 13:10)
DX: M80.051A Age-related osteoporosis with current pathological fracture, right femur, initial encounter for fracture (principal); N17.9 Acute kidney failure, unspecified; E46 Unspecified protein-calorie malnutrition; M80.851A Other osteoporosis with current pathological fracture, right femur, initial encounter for fracture; I10 Essential (primary) hypertension; E89.0 Postprocedural hypothyroidism; D72.829 Elevated white blood cell count, unspecified; T45.8X5A Adverse effect of other primarily systemic and hematological agents, initial encounter; Z68.30 Body mass index [BMI] 30.0-30.9, adult
CPT/HCPCS: 72170; 73501; 73502; 73552; 73700; 76000; 80048; 80053; 81001; 82306; 82652; 83540; 83550; 83970; 84155; 84466; 85014; 85018; 85025; 85610; 85730; 86850; 86900; 86901; 88305; 88311; 90471; 90732; 93005; 94150; 96374; 96375; C1776; G0009; J0131; J0171; J0690; J0735; J1100; J1170; J1580; J1650; J1885; J2250; J2270; J2370; J2405; J2710; J2795; J3010; J3370; J7030; J7040; J7050; J7120